=== PATIENT | female | born 1955 ===

== ENCOUNTER → 2017-01-10 | Outpatient (CLI) | payer OTHER ==
[2015-02-10 11:00] VITALS: BP 134/91
[~2017-01-10] MED LIST: ALEN70TA5 PO; DILT120C80 PO; METH10TA2 PO; METO25TA4 PO; SERT50TA PO
--- NOTE | 2017-01-10 14:10 | RAD ---
DATE: 01/10/2017 EXAM: MAMMO THOMPSON DARIN SUAREZ, BREAST LEFT HISTORY: Left breast lump COMPARISON: None available The breast parenchyma shows scattered fibroglandular densities. Breast parenchyma level B. FINDINGS: 2-D and 3-D tomosynthesis imaging was performed in CC and MLO projections. A marker was placed over the skin surface in the area of palpable concern in the upper outer quadrant of the left breast. No mass is seen in this region or other areas of either breast. Benign type calcifications are present. No suspicious microcalcifications are identified. Left breast ultrasound, 01/10/2017: A targeted ultrasound exam of the left breast was performed in the area of palpable concern in the upper outer quadrant. Normal heterogeneous fibroglandular shadows are present. No cystic or solid mass is seen. IMPRESSION: 1. No mammographic abnormality is detected. 2. The targeted ultrasound exam of the area of concern in the upper outer quadrant of the left breast shows no abnormality. Clinical surveillance is suggested. BI-RADS CATEGORY: 1 NEGATIVE RECOMMENDED FOLLOW-UP: 12M 12 MONTH FOLLOW-UP PQRS compliance statement: Patient information was entered into a reminder system with a target due date for the next mammogram. Mammography is a sensitive method for finding small breast cancers, but it does not detect them all and is not a substitute for careful clinical examination. A negative mammogram does not negate a clinically suspicious finding and should not result in delay in biopsying a clinically suspicious abnormality. "Our facility is accredited by the [employer] Mammography Program."
== END | disposition home or self-care (01) ==
LOC: KCIC MAMMO 12:49
PROVIDERS: ATTEND Internal Medicine
DX: N63 Unspecified lump in breast (principal); R92.1 Mammographic calcification found on diagnostic imaging of breast
CPT/HCPCS: 76641; G0204; G0279; 77062; 77066

== ENCOUNTER 2021-04-12 06:16 | Inpatient (IN) | payer MEDICARE, OTHER ==
[~2021-04-12] VITALS: Ht 160 cm; Wt 82.0 kg
[~2021-04-12 06:16] MED LIST changes: -ALEN70TA5 PO; +ALEN70TA71 PO; -DILT120C80 PO; +DILT120C99 PO; +METH-572 PO; -METH10TA2 PO
--- NOTE | 2021-04-12 06:53 | PHYS DOC ---
Past Medical History Past Medical History: Diabetes-Type II, Hypertension Additional Past Medical Histor: DM controlled with weight loss Past Surgical History: Hysterectomy Smoking Status: Current Every Day Smoker Alcohol Use: None Drug Use: None General Adult EDM: Chief Complaint: BLOOD SUGAR PROBLEM HPI: HPI: 65-year-old female with previous history of diabetes currently not on any diabetic regimen presents to the emergency department complaining of nausea, fatigue, dry heaving, and lack of appetite for the last 1 week. She checked her blood sugar this morning and it was in the 400s. She notes that in the past she lost quite a bit of weight and reversed her diabetes. She states that over the course of time she has gained the weight back, but is not on any medication to control blood sugar at this time. She reports no diarrhea or other gastrointestinal symptoms today. She denies frequency of urine or any further urine changes. She admits to a history of hypertension. She is compliant with all of her other medications. The patient denies vomiting, fever, chills, chest pain, shortness of breath, abdominal pain, cough, recent trauma, or any other complaints. Review of Systems: Review of Systems: Constitutional: Denies fever or chills. Eyes: Denies change in vision, pain. HENT: Denies congestion or sore throat. Respiratory: Denies cough or shortness of breath. Cardiovascular: Denies chest pain or edema. GI: Admits to dry heaving and nausea, lack of appetite. : Denies change in urination, dysuria. Musculoskeletal: Denies extremity pain, or trauma. Skin: Denies rash, skin change. Neurologic: Denies headache, focal weakness. Psychiatric: Denies depression or anxiety. All other systems reviewed as negative except for what was mentioned in the HPI. Heart Score: C/O Chest Pain: No Family History: Family History: Noncontributory Allergies: Allergies: Allergies Coded Allergies Type Severity Reaction Last Updated Verified No Known Drug Allergies 12/25/13 No Physical Exam: PE: Constitutional: No acute distress, non-toxic appearance. HENT: Atraumatic, bilateral external ears normal, nose normal. Eyes: PERRLA, EOMI, conjunctiva normal, no discharge. Neck: Normal range of motion, supple, no stridor. Cardiovascular: Heart rate regular rhythm. 2+ radial pulses Lungs & Thorax: No respiratory distress, symmetrical expansion. Abdomen: Soft, no tenderness Skin: Warm, dry. Extremities: No tenderness, no cyanosis, ROM intact, no edema. Neurologic: Alert and oriented X 3, normal motor function, normal sensory function, no focal deficits noted. Non ataxic gait. GCS 15. Psychologic: Affect normal, judgment normal, mood normal. Current Patient Data: Labs: Laboratory Tests Test 04/12/21 06:45 04/12/21 06:48 Glucose (Fingerstick) 594 mg/dL (70-99) White Blood Count 10.1 x10^3/uL (4.0-11.0) Red Blood Count 4.93 x10^6/uL (3.50-5.40) Hemoglobin 14.0 g/dL (12.0-15.5) Hematocrit 42.6 % (36.0-47.0) Mean Corpuscular Volume 86 fL (79-100) Mean Corpuscular Hemoglobin 28 pg (25-35) Mean Corpuscular Hemoglobin Concent 33 g/dL (31-37) Red Cell Distribution Width 13.1 % (11.5-14.5) Platelet Count 282 x10^3/uL (140-400) Neutrophils (%) (Auto) 77 % (31-73) Lymphocytes (%) (Auto) 11 % (24-48) Monocytes (%) (Auto) 8 % (0-9) Eosinophils (%) (Auto) 3 % (0-3) Basophils (%) (Auto) 1 % (0-3) Neutrophils # (Auto) 7.7 x10^3/uL (1.8-7.7) Lymphocytes # (Auto) 1.1 x10^3/uL (1.0-4.8) Monocytes # (Auto) 0.8 x10^3/uL (0.0-1.1) Eosinophils # (Auto) 0.3 x10^3/uL (0.0-0.7) Basophils # (Auto) 0.1 x10^3/uL (0.0-0.2) Sodium Level 123 mmol/L (136-145) Potassium Level 4.3 mmol/L (3.5-5.1) Chloride Level 91 mmol/L (98-107) Carbon Dioxide Level 22 mmol/L (21-32) Anion Gap 10 (6-14) Blood Urea Nitrogen 66 mg/dL (7-20) Creatinine 2.8 mg/dL (0.6-1.0) Estimated GFR (Cockcroft-Gault) 17.0 BUN/Creatinine Ratio 24 (6-20) Glucose Level 600 mg/dL (70-99) Calcium Level 10.3 mg/dL (8.5-10.1) Magnesium Level 2.2 mg/dL (1.8-2.4) Total Bilirubin 0.5 mg/dL (0.2-1.0) Aspartate Amino Transf (AST/SGOT) 23 U/L (15-37) Alanine Aminotransferase (ALT/SGPT) 37 U/L (14-59) Alkaline Phosphatase 106 U/L (46-116) Troponin I High Sensitivity 297 ng/L (4-50) ZJ-Bsj-Q-Type Natriuretic Peptide 830 pg/mL (0-124) Total Protein 7.4 g/dL (6.4-8.2) Albumin 3.4 g/dL (3.4-5.0) Albumin/Globulin Ratio 0.9 (1.0-1.7) Thyroid Stimulating Hormone (TSH) 6.277 uIU/mL (0.358-3.74) Vital Signs: Vital Signs Date Time Temp Pulse Resp B/P (MAP) Pulse Ox O2 Delivery O2 Flow Rate FiO2 04/12/21 06:39 97.8 60 13 157/89 (111) 99 Room Air 97.8 EKG: EKG: Time read: 0711 Questionable atrial flutter type pattern rate of 56, no ST-T wave ischemic changes. Impression: No STEMI, or ischemic change. Interpreted by me, Tripp Mcrae D.O. Radiology/Procedures: Radiology/Procedures: XR CHEST 1V 04/12/2021 6:53 AM INDICATION: Nausea COMPARISON: None available TECHNIQUE: Portable frontal view of the chest is provided. FINDINGS: The cardiomediastinal silhouette is within normal limits. Lungs are clear. There are no significant pleural effusions. There is no pulmonary vascular congestion. No pneumothorax. Levoconvex scoliosis of the thoracic spine. IMPRESSION: There is no acute cardiopulmonary process. Electronically signed by: Anuradha Maxwell MD (04/12/2021 7:01 AM) Course & Med Decision Making: Course & Med Decision Making Initial glucose of 594 fingerstick, insulin and fluids were ordered for symptomatic treatment. Lab abnormalities show DEMI, elevated troponin possibly from DEMI as patient is typical ACS symptoms, elevated TSH. I discussed the case with Dr. Isaac who accepted the patient for admission to the hospital. Patient was admitted in improved condition. Cardiology consult was placed repeat ekg shows irregular rhythm rate of 36, small appearing P waves were seen, patient remains stable. I discussed care with cardiology including bradycardic rhythm. Patient remained with stable BP. My Orders - TRIPP MCRAE DO Procedure Category Date Status Time Iv Normal Saline PHA 04/12/21 In Process 1000ml Bag (Iv Sodium 07:00 Cbc W Autodiff LAB 04/12/21 Complete 06:47 Comprehensive LAB 04/12/21 Complete Metabolic Panel 06:47 Ua, Cult If Indicated LAB 04/12/21 In Process 06:47 Portable Chest 1v RAD 04/12/21 Resulted 06:47 12 Lead Ekg EKG 04/12/21 Complete 06:47 Nt-Pro Bnp LAB 04/12/21 Complete 06:47 Troponin-I High LAB 04/12/21 Complete Sensitivity 06:47 Magnesium LAB 04/12/21 Complete 06:47 Thyroid Stim Hormone LAB 04/12/21 Complete (Tsh) 06:47 Insulin Regular Vial PHA 04/12/21 Complete (Humulin R Vial) 07:00 Glucose Poct X 1 [facility] 04/12/21 In Process 07:36 Troponin-I High LAB 04/12/21 Logged Sensitivity 10:00 [place] Order ADT 04/12/21 Transmitted 07:38 Code Status CODE 04/12/21 Transmitted 07:38 Vital Signs, Per Unit [facility] 04/12/21 In Process Protocol 07:38 Cardiac DIET 04/12/21 Transmitted Breakfast Ambulate With [facility] 04/12/21 In Process Assistance 07:38 Ondansetron Pf PHA 04/12/21 In Process (Zofran) 07:45 Iv Normal Saline PHA 04/12/21 In Process 1000ml Bag (Iv Sodium 07:45 Consult Physician By CONS 04/12/21 Transmitted Name 07:38 Vital Signs Q4h [facility] 04/12/21 In Process 07:38 Departure Departure Impression: Primary Impression: Acute hyperglycemia Disposition: 01 HOME / SELF CARE / HOMELESS Admitting Physician: NOLAN (Rigo) Condition: STABLE Referrals: KYLE XIONG MD (PCP) TRIPP MCRAE DO Apr 12, 2021 06:53
[2021-04-12] MEDS ORDERED: IV NORMAL SALINE 1000ML BAG 1,000 ML IV SCH (07:00)
[2021-04-12] MEDS ORDERED: INSULIN REGULAR 100 UNIT/ML 3ML VIAL. IV ONE (07:00)
--- NOTE | 2021-04-12 07:04 | RAD ---
XR CHEST 1V 04/12/2021 6:53 AM INDICATION: Nausea COMPARISON: None available TECHNIQUE: Portable frontal view of the chest is provided. FINDINGS: The cardiomediastinal silhouette is within normal limits. Lungs are clear. There are no significant pleural effusions. There is no pulmonary vascular congestion. No pneumothora x. Levoconvex scoliosis of the thoracic spine. IMPRESSION: There is no acute cardiopulmonary process. Electronically signed by: Anuradha Maxwell MD (04/12/2021 7:01 AM) GALLO
[2021-04-12 07:11] LABS: BASO # 0.1 x10^3/uL (0.0-0.2); BASO % 1 % (0-3); EOS # 0.3 x10^3/uL (0.0-0.7); EOS % 3 % (0-3); HEMATOCRIT 42.6 % (36.0-47.0); LYMPH # 1.1 x10^3/uL (1.0-4.8); LYMPH % 11 % (24-48); MEAN CORPUSCULAR HEMOGLOBIN 28 pg (25-35); MEAN CORPUSCULAR HGB CONC 33 g/dL (31-37); MEAN CORPUSCULAR VOLUME 86 fL (79-100); MONO # 0.8 x10^3/uL (0.0-1.1); MONO % 8 % (0-9); NEUT # 7.7 x10^3/uL (1.8-7.7); NEUT % 77 % (31-73); PLATELET COUNT 282 x10^3/uL (140-400); RED BLOOD COUNT 4.93 x10^6/uL (3.50-5.40); RED CELL DISTRIBUTION WIDTH 13.1 % (11.5-14.5); WHITE BLOOD COUNT 10.1 x10^3/uL (4.0-11.0)
--- NOTE | 2021-04-12 07:13 | EKG ---
[facility] [address] [place] [address] Test Date: 2021-04-12 Test Time: 07:05:05 Pat Name: MERCY GEORGE Department: Room: Gender: F Collection Manager: : [id number] Requested By: ALPESH CORNELL Order Number: [id number] Reading MD: Norman Gatica Measurements Intervals [place] Rate: 56 P: [place]: QRS: -5 QRSD: 110 T: 78 QT: 412 QTc: 400 Interpretive Statements PROBABLE SINUS BRADYCARDIA LEFTWARD AXIS NON SPECIFIC ST-T WAVE CHANGES Electronically Signed On 04-16-2021 9:59:43 DIRECTOR OF BILLING by Norman Gatica
[2021-04-12 07:27] LABS: ALBUMIN 3.4 g/dL (3.4-5.0); ALBUMIN/GLOBULIN RATIO 0.9 (1.0-1.7); CALCIUM 10.3 mg/dL (8.5-10.1); CREATININE 2.8 mg/dL (0.6-1.0); MAGNESIUM 2.2 mg/dL (1.8-2.4); POTASSIUM 4.3 mmol/L (3.5-5.1); TOTAL BILIRUBIN 0.5 mg/dL (0.2-1.0); TOTAL PROTEIN 7.4 g/dL (6.4-8.2)
[2021-04-12 07:31] LABS: BILIRUBIN,URINE NEGATIVE (NEG); CLARITY,URINE CLEAR; COLOR,URINE YELLOW; NITRITE,URINE NEGATIVE (NEG); PROTEIN,URINE 30 mg/dL (NEG-TRACE); UROBILINOGEN,URINE 0.2 mg/dL (0.2 mg/dL)
[2021-04-12] MEDS: IV NORMAL SALINE 1000ML BAG 1,000 ML IV SCH ×3 (07:45→17:45)
[2021-04-12] MEDS ORDERED: ONDANSETRON PF 4 MG/2 ML VIAL. IVP PRN ×2 (07:45→09:00)
[2021-04-12 08:06] LABS: BACTERIA,URINE FEW /HPF (0-FEW); RBC,URINE OCC /HPF (0-2); WBC,URINE OCC /HPF (0-4)
[2021-04-12] MEDS: HEPARIN for SUB-Q USE 5,000 UNIT/ML VIAL. SQ SCH ×3 (09:00→21:33)
[2021-04-12] MEDS ORDERED: ZOLPIDEM 5 MG TABLET. PO PRN (09:00)
[2021-04-12] MEDS ORDERED: ELECTROLYTE (NON-ICU) PROTOCOL. MC PRN (09:00)
[2021-04-12] MEDS: METOPROLOL TART IMMED RELEASE 25 MG TABLET. PO SCH ×2 (09:00→21:00)
[2021-04-12] MEDS: SERTRALINE 50 MG TABLET. PO SCH (09:00)
[2021-04-12] MEDS ORDERED: DEXTROSE 50% 25 GM / 50ML DISP.SYRIN. IV PRN (09:00)
[2021-04-12] MEDS ORDERED: CALCIUM CARBONATE 500 MG TAB.CHEW PO PRN (09:00)
[2021-04-12] MEDS ORDERED: ACETAMINOPHEN 325 MG TABLET. PO PRN (09:00)
[2021-04-12] MEDS ORDERED: INSULIN LISPRO 300 UNITS/3 ML VIAL. SQ ONE (09:30)
--- NOTE | 2021-04-12 09:58 | PDOC1 ---
History and Physical Date of Service: DOS: DATE: 04/12/21 TIME: 09:49 Chief Complaint: Problems: (1) Acute hyperglycemia Chief Complain: N/V, decreased PO intake History of Present Illness: HPI: Patient is a 65-year-old female present in the emergency room today due to 2 weeks of nausea vomiting dry heaving and decreased p.o. intake. She checked her blood sugar this morning and it was in the 400s. She notes that in the past she lost quite a bit of weight and this had controlled her diabetes she states that over the course of time she has gained the weight back, but is not on any medication to control blood sugar at this time. She reports no diarrhea or other gastrointestinal symptoms today. She denies frequency of urine or any further urine changes. She admits to a history of hypertension. She is compliant with all of her other medications. The patient denies vomiting, fever, chills, chest pain, shortness of breath, abdominal pain, cough, recent trauma, or any other complaints. Past Medical/Surgical History: PMH/PSH: Diabetes-Type II, Hypertension Allergies: Allergies: Coded Allergies: No Known Drug Allergies (Unverified , 12/25/13) Family History: Family History: Reports diabetes Social History: Social History: Current everyday smoker. Denies alcohol drug use Current Medications: Current Medications Current Medications Sodium Chloride 1,000 ml @ 1,000 mls/hr Q1H IV Last administered on 04/12/21at 07:04; Start 04/12/21 at 07:00; Stop 04/12/21 at 07:59; Status DC Insulin Human Regular (HumuLIN R VIAL) 8 unit 1X ONCE IV Last administered on 04/12/21at 07:06; Start 04/12/21 at 07:00; Stop 04/12/21 at 07:01; Status DC Ondansetron HCl (Zofran) 4 mg PRN Q8HRS PRN IVP NAUSEA/VOMITING; Start 04/12/21 at 07:45; Stop 04/13/21 at 07:44 Sodium Chloride 1,000 ml @ 100 mls/hr Q10H IV ; Start 04/12/21 at 07:45; Stop 04/13/21 at 07:44 Insulin Human Lispro (HumaLOG) 15 units ONCE ONCE SQ ; Start 04/12/21 at 09:30; Stop 04/12/21 at 09:31; Status DC Insulin Glargine (Lantus Syringe) 10 unit QHS SQ ; Start 04/12/21 at 21:00 Metoprolol Tartrate (Lopressor) 12.5 mg BID PO ; Start 04/12/21 at 09:00 Sertraline HCl (Zoloft) 50 mg DAILY PO ; Start 04/12/21 at 09:00 Ondansetron HCl (Zofran) 4 mg PRN Q6HRS PRN IVP NAUSEA/VOMITING; Start 04/12/21 at 09:00 Calcium Carbonate/ Glycine (Tums) 500 mg PRN Q3HRS PRN PO UPSET STOMACH; Start 04/12/21 at 09:00 Zolpidem Tartrate (Ambien) 5 mg PRN QHS PRN PO INSOMNIA, MAY REPEAT IN 1HR; Start 04/12/21 at 09:00 Info (Non-Icu Electrolyte Protocol) 1 ea PRN DAILY PRN MC SEE COMMENTS; Start 04/12/21 at 09:00 Acetaminophen (Tylenol) 650 mg PRN Q6HRS PRN PO Headaches, Temp > 101.5F; Start 04/12/21 at 09:00 Heparin Sodium (Porcine) (Heparin Sodium) 5,000 unit Q8HRS SQ ; Start 04/12/21 at 09:00 Insulin Human Lispro (HumaLOG) 0-9 UNITS TIDWMEALS SQ ; Start 04/12/21 at 12:00 Dextrose (Dextrose 50%-Water Syringe) 12.5 gm PRN Q15MIN PRN IV SEE COMMENTS; Start 04/12/21 at 09:00 Active Scripts Active Reported Metoprolol Tartrate 25 Mg Tablet 0.5 Tab PO BID Alendronate Sodium 70 Mg Tablet 1 Tab PO WEEKLY Methadone Hcl 10 Mg Tablet 10 Mg PO BID Zoloft (Sertraline Hcl) 50 Mg Tablet 1 Tab PO DAILY ROS: Review of Systems Review of System Unless noted in HPI 14 point review of systems was negative Physical Exam: Vital Signs: Vital Signs Date Time Temp Pulse Resp B/P (MAP) Pulse Ox O2 Delivery O2 Flow Rate FiO2 04/12/21 08:26 42 18 142/73 (96) 98 Room Air 04/12/21 06:39 97.8 97.8 Physcial Exam: GEN: No apparent distress. Alert and oriented. Obese HEENT: Normal cephalic, atraumatic, external auditory canals are patent EYES: Extraocular muscles are intact, pupil are equally round and reactive to light and accommodation MUSCULOSKELETAL: Well developed , well nourished, good range of motion ENDOCRINE: No thyromegaly was palpated LYMPHATICS: No cervical chain or axillary nodes were noted HEMATOPOIETIC: No bruising NECK: Supple, no JVD, no thyromegaly was noted LUNGS: Clear to auscultation in all lung huerta without rhonchi or wheezing HEART: RRR, S1, S2 present. Peripheral pulses intact, no obvious murmurs noted ABDOMEN: Soft, nontender. Positive bowel sounds, no organomegaly, normal bowel sounds EXTREMITIES: Without clubbing, cyanosis, or edema. Pedal pulses intact. NEUROLOGIC: Normal speech and tone. A&O x 3, moves all extremities, no obvious focal deficits PSYCHIATRIC: Normal affect, normal mood. Stable SKIN: No ulcerations or rashes, good skin turgor, no jaundice VASCULAR: Good capillary refill, neurovascular bundle appears to be intact Labs: Labs: Laboratory Tests Test 04/12/21 06:45 04/12/21 06:48 04/12/21 07:20 04/12/21 08:06 Glucose (Fingerstick) 594 mg/dL (70-99) 410 mg/dL (70-99) White Blood Count 10.1 x10^3/uL (4.0-11.0) Red Blood Count 4.93 x10^6/uL (3.50-5.40) Hemoglobin 14.0 g/dL (12.0-15.5) Hematocrit 42.6 % (36.0-47.0) Mean Corpuscular Volume 86 fL (79-100) Mean Corpuscular Hemoglobin 28 pg (25-35) Mean Corpuscular Hemoglobin Concent 33 g/dL (31-37) Red Cell Distribution Width 13.1 % (11.5-14.5) Platelet Count 282 x10^3/uL (140-400) Neutrophils (%) (Auto) 77 % (31-73) Lymphocytes (%) (Auto) 11 % (24-48) Monocytes (%) (Auto) 8 % (0-9) Eosinophils (%) (Auto) 3 % (0-3) Basophils (%) (Auto) 1 % (0-3) Neutrophils # (Auto) 7.7 x10^3/uL (1.8-7.7) Lymphocytes # (Auto) 1.1 x10^3/uL (1.0-4.8) Monocytes # (Auto) 0.8 x10^3/uL (0.0-1.1) Eosinophils # (Auto) 0.3 x10^3/uL (0.0-0.7) Basophils # (Auto) 0.1 x10^3/uL (0.0-0.2) Sodium Level 123 mmol/L (136-145) Potassium Level 4.3 mmol/L (3.5-5.1) Chloride Level 91 mmol/L (98-107) Carbon Dioxide Level 22 mmol/L (21-32) Anion Gap 10 (6-14) Blood Urea Nitrogen 66 mg/dL (7-20) Creatinine 2.8 mg/dL (0.6-1.0) Estimated GFR (Cockcroft-Gault) 17.0 BUN/Creatinine Ratio 24 (6-20) Glucose Level 600 mg/dL (70-99) Calcium Level 10.3 mg/dL (8.5-10.1) Magnesium Level 2.2 mg/dL (1.8-2.4) Total Bilirubin 0.5 mg/dL (0.2-1.0) Aspartate Amino Transf (AST/SGOT) 23 U/L (15-37) Alanine Aminotransferase (ALT/SGPT) 37 U/L (14-59) Alkaline Phosphatase 106 U/L (46-116) Troponin I High Sensitivity 297 ng/L (4-50) IR-Iuy-L-Type Natriuretic Peptide 830 pg/mL (0-124) Total Protein 7.4 g/dL (6.4-8.2) Albumin 3.4 g/dL (3.4-5.0) Albumin/Globulin Ratio 0.9 (1.0-1.7) Thyroid Stimulating Hormone (TSH) 6.277 uIU/mL (0.358-3.74) Urine Collection Type Unknown Urine Color Yellow Urine Clarity Clear Urine pH 6.0 (<5.0-8.0) Urine Specific [place] 1.020 (1.000-1.030) Urine Protein 30 mg/dL (NEG-TRACE) Urine Glucose (UA) >=1000 mg/dL (NEG) Urine Ketones (Stick) Negative mg/dL (NEG) Urine Blood Negative (NEG) Urine Nitrite Negative (NEG) Urine Bilirubin Negative (NEG) Urine Urobilinogen Dipstick 0.2 mg/dL (0.2 mg/dL) Urine Leukocyte Esterase Negative (NEG) Urine RBC Occ /HPF (0-2) Urine WBC Occ /HPF (0-4) Urine Squamous Epithelial Cells Few /LPF Urine Bacteria Few /HPF (0-FEW) Test 04/12/21 08:10 SARS-CoV-2 Antigen (Rapid) Negative (NEGATIVE) Laboratory Tests Test 04/12/21 06:45 04/12/21 06:48 04/12/21 07:20 04/12/21 08:06 Glucose (Fingerstick) 594 mg/dL (70-99) 410 mg/dL (70-99) White Blood Count 10.1 x10^3/uL (4.0-11.0) Red Blood Count 4.93 x10^6/uL (3.50-5.40) Hemoglobin 14.0 g/dL (12.0-15.5) Hematocrit 42.6 % (36.0-47.0) Mean Corpuscular Volume 86 fL (79-100) Mean Corpuscular Hemoglobin 28 pg (25-35) Mean Corpuscular Hemoglobin Concent 33 g/dL (31-37) Red Cell Distribution Width 13.1 % (11.5-14.5) Platelet Count 282 x10^3/uL (140-400) Neutrophils (%) (Auto) 77 % (31-73) Lymphocytes (%) (Auto) 11 % (24-48) Monocytes (%) (Auto) 8 % (0-9) Eosinophils (%) (Auto) 3 % (0-3) Basophils (%) (Auto) 1 % (0-3) Neutrophils # (Auto) 7.7 x10^3/uL (1.8-7.7) Lymphocytes # (Auto) 1.1 x10^3/uL (1.0-4.8) Monocytes # (Auto) 0.8 x10^3/uL (0.0-1.1) Eosinophils # (Auto) 0.3 x10^3/uL (0.0-0.7) Basophils # (Auto) 0.1 x10^3/uL (0.0-0.2) Sodium Level 123 mmol/L (136-145) Potassium Level 4.3 mmol/L (3.5-5.1) Chloride Level 91 mmol/L (98-107) Carbon Dioxide Level 22 mmol/L (21-32) Anion Gap 10 (6-14) Blood Urea Nitrogen 66 mg/dL (7-20) Creatinine 2.8 mg/dL (0.6-1.0) Estimated GFR (Cockcroft-Gault) 17.0 BUN/Creatinine Ratio 24 (6-20) Glucose Level 600 mg/dL (70-99) Calcium Level 10.3 mg/dL (8.5-10.1) Magnesium Level 2.2 mg/dL (1.8-2.4) Total Bilirubin 0.5 mg/dL (0.2-1.0) Aspartate Amino Transf (AST/SGOT) 23 U/L (15-37) Alanine Aminotransferase (ALT/SGPT) 37 U/L (14-59) Alkaline Phosphatase 106 U/L (46-116) Troponin I High Sensitivity 297 ng/L (4-50) JV-Dlg-J-Type Natriuretic Peptide 830 pg/mL (0-124) Total Protein 7.4 g/dL (6.4-8.2) Albumin 3.4 g/dL (3.4-5.0) Albumin/Globulin Ratio 0.9 (1.0-1.7) Thyroid Stimulating Hormone (TSH) 6.277 uIU/mL (0.358-3.74) Urine Collection Type Unknown Urine Color Yellow Urine Clarity Clear Urine pH 6.0 (<5.0-8.0) Urine Specific [place] 1.020 (1.000-1.030) Urine Protein 30 mg/dL (NEG-TRACE) Urine Glucose (UA) >=1000 mg/dL (NEG) Urine Ketones (Stick) Negative mg/dL (NEG) Urine Blood Negative (NEG) Urine Nitrite Negative (NEG) Urine Bilirubin Negative (NEG) Urine Urobilinogen Dipstick 0.2 mg/dL (0.2 mg/dL) Urine Leukocyte Esterase Negative (NEG) Urine RBC Occ /HPF (0-2) Urine WBC Occ /HPF (0-4) Urine Squamous Epithelial Cells Few /LPF Urine Bacteria Few /HPF (0-FEW) Test 04/12/21 08:10 SARS-CoV-2 Antigen (Rapid) Negative (NEGATIVE) Assessment/Plan Assessment/Plan Hyperglycemia secondary to uncontrolled type 2 diabetes not on home insulin, hypertension tobacco abuse, DEMI unknown baseline, troponinemia, hypothyroid -Presenting with 3 to 4-day history nausea vomiting decreased p.o. intake -Presented emergency room found to have glucose 600. Received 8 units of insulin next glucose check around 415 -Every 4 hours glucose checks -Give 10 units of insulin now. Start Lantus. Sliding scale. Will likely need premeal as well. -Patient also with elevated troponins. BNP consulting cardiology -Several electrolyte abnormalities. Elevated creatinine. Renal consulted -DVT prophylaxis -Home meds resumed as indicated Justifications for Admission Other Justification JO-ANN MCCLAIN MD Apr 12, 2021 09:58
[2021-04-12 10:50] VITALS: BP 164/92
[2021-04-12] MEDS ORDERED: PROP80CA3 PO (10:54)
[2021-04-12] MEDS ORDERED: TRAZ-118 PO (10:54)
[2021-04-12] MEDS ORDERED: [UNRECOGNIZED DRUG - CODE] PO (10:54)
[2021-04-12] MEDS ORDERED: CALC0.25 PO (10:54)
[2021-04-12] MEDS ORDERED: LEVO112T49 PO (10:54)
[2021-04-12] MEDS ORDERED: BUSP10TA PO (10:54)
[2021-04-12] MEDS ORDERED: OLAN5TAB67 PO (10:54)
[2021-04-12] MEDS ORDERED: LISI1TAB37 PO (10:54)
[2021-04-12] MEDS: busPIRone 10 MG TABLET. PO SCH ×2 (11:56→21:27)
[2021-04-12] MEDS: OLANZapine 5 MG TABLET PO SCH (11:57)
[2021-04-12] MEDS: CALCITRIOL 0.25 MCG CAPSULE. PO SCH (11:57)
[2021-04-12] MEDS ORDERED: PROPRANOLOL ER 80 MG CAP.ER.24H. PO SCH (12:00)
[2021-04-12] MEDS: INSULIN LISPRO 300 UNITS/3 ML VIAL. SQ SCH ×3 (12:00→18:04)
--- NOTE | 2021-04-12 12:02 | PDOC2 ---
CONSULT Date of Consult Date of Consult DATE: 04/12/21 TIME: 11:50 Reason for Consult Reason for Consult: DEMI Identification/Chief Complaint Chief Complaint None at present Source Source: Chart review, Patient History of Present Illness Reason for Visit: Patient is a 65-year-old female present in the emergency room today due to 2 w eeks of nausea vomiting dry heaving and decreased p.o. intake. She checked her blood sugar and it was in the 400s. She notes that in the past she lost quite a bit of weight and this had controlled her diabetes she states that over the course of time she has gained the weight back, but is not on any medications . Denies diarrhea , no abdominal pain . Denies F/C . No CP or SOB . Denies Urinary complaints, No UTI's States she knows she has Dx of Kidney disease, never referred to Nephrology - follows with PCP Dr. Jewell Salas, last appt earlier this year . Takes Advil 2 pills/day for many years Past Medical History Past Medical History Diabetes-Type II, Hypertension Family History Family History diabetes Social History Social History Current everyday smoker. Denies alcohol drug use Current Problem List Problem List Problems Medical Problems: (1) Acute hyperglycemia Status: Acute Current Medications Current Medications Current Medications Sodium Chloride 1,000 ml @ 1,000 mls/hr Q1H IV Last administered on 04/12/21at 07:04; Start 04/12/21 at 07:00; Stop 04/12/21 at 07:59; Status DC Insulin Human Regular (HumuLIN R VIAL) 8 unit 1X ONCE IV Last administered on 04/12/21at 07:06; Start 04/12/21 at 07:00; Stop 04/12/21 at 07:01; Status DC Ondansetron HCl (Zofran) 4 mg PRN Q8HRS PRN IVP NAUSEA/VOMITING; Start 04/12/21 at 07:45; Stop 04/13/21 at 07:44 Sodium Chloride 1,000 ml @ 100 mls/hr Q10H IV ; Start 04/12/21 at 07:45; Stop 04/13/21 at 07:44 Insulin Human Lispro (HumaLOG) 15 units ONCE ONCE SQ ; Start 04/12/21 at 09:30; Stop 04/12/21 at 09:31; Status DC Insulin Glargine (Lantus Syringe) 10 unit QHS SQ ; Start 04/12/21 at 21:00 Metoprolol Tartrate (Lopressor) 12.5 mg BID PO ; Start 04/12/21 at 09:00 Sertraline HCl (Zoloft) 50 mg DAILY PO ; Start 04/12/21 at 09:00 Ondansetron HCl (Zofran) 4 mg PRN Q6HRS PRN IVP NAUSEA/VOMITING; Start 04/12/21 at 09:00 Calcium Carbonate/ Glycine (Tums) 500 mg PRN Q3HRS PRN PO UPSET STOMACH; Start 04/12/21 at 09:00 Zolpidem Tartrate (Ambien) 5 mg PRN QHS PRN PO INSOMNIA, MAY REPEAT IN 1HR; Start 04/12/21 at 09:00 Info (Non-Icu Electrolyte Protocol) 1 ea PRN DAILY PRN MC SEE COMMENTS; Start 04/12/21 at 09:00 Acetaminophen (Tylenol) 650 mg PRN Q6HRS PRN PO Headaches, Temp > 101.5F; Start 04/12/21 at 09:00 Heparin Sodium (Porcine) (Heparin Sodium) 5,000 unit Q8HRS SQ ; Start 04/12/21 at 09:00 Insulin Human Lispro (HumaLOG) 0-9 UNITS TIDWMEALS SQ ; Start 04/12/21 at 12:00 Dextrose (Dextrose 50%-Water Syringe) 12.5 gm PRN Q15MIN PRN IV SEE COMMENTS; Start 04/12/21 at 09:00 Buspirone HCl (Buspar) 10 mg BID PO ; Start 04/12/21 at 12:00 Calcitriol (Rocaltrol) 0.25 mcg DAILY PO ; Start 04/12/21 at 12:00 Levothyroxine Sodium (Synthroid) 112 mcg DAILY06 PO ; Start 04/13/21 at 06:00 Olanzapine (ZyPREXA) 5 mg DAILY PO ; Start 04/12/21 at 12:00 Propranolol HCl (Inderal La) 80 mg DAILY PO ; Start 04/12/21 at 12:00 Trazodone HCl (Desyrel) 50 mg QHS PO ; Start 04/12/21 at 21:00 Diltiazem HCl (Cardizem 24hr Cd) 120 mg BID PO ; Start 04/12/21 at 12:00 Active Scripts Active Reported Olanzapine 5 Mg Tablet 5 Mg PO DAILY Trazodone Hcl 50 Mg Tablet 1 Tab PO QHS Buspirone Hcl 10 Mg Tablet 1 Tab PO BID Calcitriol 0.25 Mcg Capsule 1 Cap PO DAILY Propranolol Hcl 80 Mg Cap.sa.24h 1 Cap PO DAILY Levothyroxine Sodium 112 Mcg Tablet 1 Tab PO DAILY Lisinopril-Hctz 20-12.5 Mg Tab (Lisinopril/Hydrochlorothiazide) 1 Each Tablet 1 Tab PO DAILY Taztia Xt (Diltiazem Hcl) 120 Mg Capsule.er 1 Cap PO BID 30 Days Alendronate Sodium 70 Mg Tablet 1 Tab PO WEEKLY Methadone Hcl 10 Mg Tablet 10 Mg PO BID Zoloft (Sertraline Hcl) 50 Mg Tablet 1 Tab PO DAILY Allergies Allergies: Coded Allergies: No Known Drug Allergies (Unverified , 12/25/13) ROS Review of System As per HPI, rest of the ROS is negative Physical Exam Physical Exam GEN: No apparent distress HEENT: Normal cephalic, OM dry, anicteric NECK: Supple LUNGS: Clear to auscultation , non labored HEART: RRR, S1, S2 present. ABDOMEN: Soft, nontender. Positive bowel sound EXTREMITIES: Without clubbing, cyanosis, or edema. NEUROLOGIC: Normal speech and tone. A&O x 3, moves all extremities, no obvious focal deficits PSYCHIATRIC: Normal affect, normal mood. Stable SKIN: No ulcerations or rashes, good skin turgor, no jaundice No Lay, No CVA or SP tenderness Vital Signs Vital Signs Date Time Temp Pulse Resp B/P (MAP) Pulse Ox O2 Delivery O2 Flow Rate FiO2 04/12/21 10:50 98.0 64 16 164/92 (116) 97 Room Air 98.0 Assessment & Plan DEMI on CKD - Etiology Vasomotor- Vomiting/HyperGlycemia . E-lytes stable, Normal Bicarb. Supportive care, maintain Hydration, Avoid Nephrotoxins. Strict I/O CKD 3 B baseline Cr 1,6-1.8 in 2014, No interval labs available .Uses NSAId's HypoNatremia- Normal Na (135) after correcting for HyperGlycemia Hyperglycemia secondary to uncontrolled type 2 diabetes - primary managing DM UNcontrolled, not taking any meds at Home HTN antihypertensives Labs Labs Laboratory Tests Test 04/12/21 06:45 04/12/21 06:48 04/12/21 07:20 04/12/21 08:06 Glucose (Fingerstick) 594 mg/dL (70-99) 410 mg/dL (70-99) White Blood Count 10.1 x10^3/uL (4.0-11.0) Red Blood Count 4.93 x10^6/uL (3.50-5.40) Hemoglobin 14.0 g/dL (12.0-15.5) Hematocrit 42.6 % (36.0-47.0) Mean Corpuscular Volume 86 fL (79-100) Mean Corpuscular Hemoglobin 28 pg (25-35) Mean Corpuscular Hemoglobin Concent 33 g/dL (31-37) Red Cell Distribution Width 13.1 % (11.5-14.5) Platelet Count 282 x10^3/uL (140-400) Neutrophils (%) (Auto) 77 % (31-73) Lymphocytes (%) (Auto) 11 % (24-48) Monocytes (%) (Auto) 8 % (0-9) Eosinophils (%) (Auto) 3 % (0-3) Basophils (%) (Auto) 1 % (0-3) Neutrophils # (Auto) 7.7 x10^3/uL (1.8-7.7) Lymphocytes # (Auto) 1.1 x10^3/uL (1.0-4.8) Monocytes # (Auto) 0.8 x10^3/uL (0.0-1.1) Eosinophils # (Auto) 0.3 x10^3/uL (0.0-0.7) Basophils # (Auto) 0.1 x10^3/uL (0.0-0.2) Sodium Level 123 mmol/L (136-145) Potassium Level 4.3 mmol/L (3.5-5.1) Chloride Level 91 mmol/L (98-107) Carbon Dioxide Level 22 mmol/L (21-32) Anion Gap 10 (6-14) Blood Urea Nitrogen 66 mg/dL (7-20) Creatinine 2.8 mg/dL (0.6-1.0) Estimated GFR (Cockcroft-Gault) 17.0 BUN/Creatinine Ratio 24 (6-20) Glucose Level 600 mg/dL (70-99) Calcium Level 10.3 mg/dL (8.5-10.1) Magnesium Level 2.2 mg/dL (1.8-2.4) Total Bilirubin 0.5 mg/dL (0.2-1.0) Aspartate Amino Transf (AST/SGOT) 23 U/L (15-37) Alanine Aminotransferase (ALT/SGPT) 37 U/L (14-59) Alkaline Phosphatase 106 U/L (46-116) Troponin I High Sensitivity 297 ng/L (4-50) UK-Jss-A-Type Natriuretic Peptide 830 pg/mL (0-124) Total Protein 7.4 g/dL (6.4-8.2) Albumin 3.4 g/dL (3.4-5.0) Albumin/Globulin Ratio 0.9 (1.0-1.7) Thyroid Stimulating Hormone (TSH) 6.277 uIU/mL (0.358-3.74) Urine Collection Type Unknown Urine Color Yellow Urine Clarity Clear Urine pH 6.0 (<5.0-8.0) Urine Specific [place] 1.020 (1.000-1.030) Urine Protein 30 mg/dL (NEG-TRACE) Urine Glucose (UA) >=1000 mg/dL (NEG) Urine Ketones (Stick) Negative mg/dL (NEG) Urine Blood Negative (NEG) Urine Nitrite Negative (NEG) Urine Bilirubin Negative (NEG) Urine Urobilinogen Dipstick 0.2 mg/dL (0.2 mg/dL) Urine Leukocyte Esterase Negative (NEG) Urine RBC Occ /HPF (0-2) Urine WBC Occ /HPF (0-4) Urine Squamous Epithelial Cells Few /LPF Urine Bacteria Few /HPF (0-FEW) Test 04/12/21 08:10 04/12/21 11:14 04/12/21 11:31 SARS-CoV-2 Antigen (Rapid) Negative (NEGATIVE) Troponin I High Sensitivity 259 ng/L (4-50) Glucose (Fingerstick) 404 mg/dL (70-99) Laboratory Tests Test 04/12/21 06:45 04/12/21 06:48 04/12/21 07:20 04/12/21 08:06 Glucose (Fingerstick) 594 mg/dL (70-99) 410 mg/dL (70-99) White Blood Count 10.1 x10^3/uL (4.0-11.0) Red Blood Count 4.93 x10^6/uL (3.50-5.40) Hemoglobin 14.0 g/dL (12.0-15.5) Hematocrit 42.6 % (36.0-47.0) Mean Corpuscular Volume 86 fL (79-100) Mean Corpuscular Hemoglobin 28 pg (25-35) Mean Corpuscular Hemoglobin Concent 33 g/dL (31-37) Red Cell Distribution Width 13.1 % (11.5-14.5) Platelet Count 282 x10^3/uL (140-400) Neutrophils (%) (Auto) 77 % (31-73) Lymphocytes (%) (Auto) 11 % (24-48) Monocytes (%) (Auto) 8 % (0-9) Eosinophils (%) (Auto) 3 % (0-3) Basophils (%) (Auto) 1 % (0-3) Neutrophils # (Auto) 7.7 x10^3/uL (1.8-7.7) Lymphocytes # (Auto) 1.1 x10^3/uL (1.0-4.8) Monocytes # (Auto) 0.8 x10^3/uL (0.0-1.1) Eosinophils # (Auto) 0.3 x10^3/uL (0.0-0.7) Basophils # (Auto) 0.1 x10^3/uL (0.0-0.2) Sodium Level 123 mmol/L (136-145) Potassium Level 4.3 mmol/L (3.5-5.1) Chloride Level 91 mmol/L (98-107) Carbon Dioxide Level 22 mmol/L (21-32) Anion Gap 10 (6-14) Blood Urea Nitrogen 66 mg/dL (7-20) Creatinine 2.8 mg/dL (0.6-1.0) Estimated GFR (Cockcroft-Gault) 17.0 BUN/Creatinine Ratio 24 (6-20) Glucose Level 600 mg/dL (70-99) Calcium Level 10.3 mg/dL (8.5-10.1) Magnesium Level 2.2 mg/dL (1.8-2.4) Total Bilirubin 0.5 mg/dL (0.2-1.0) Aspartate Amino Transf (AST/SGOT) 23 U/L (15-37) Alanine Aminotransferase (ALT/SGPT) 37 U/L (14-59) Alkaline Phosphatase 106 U/L (46-116) Troponin I High Sensitivity 297 ng/L (4-50) SS-Zda-T-Type Natriuretic Peptide 830 pg/mL (0-124) Total Protein 7.4 g/dL (6.4-8.2) Albumin 3.4 g/dL (3.4-5.0) Albumin/Globulin Ratio 0.9 (1.0-1.7) Thyroid Stimulating Hormone (TSH) 6.277 uIU/mL (0.358-3.74) Urine Collection Type Unknown Urine Color Yellow Urine Clarity Clear Urine pH 6.0 (<5.0-8.0) Urine Specific [place] 1.020 (1.000-1.030) Urine Protein 30 mg/dL (NEG-TRACE) Urine Glucose (UA) >=1000 mg/dL (NEG) Urine Ketones (Stick) Negative mg/dL (NEG) Urine Blood Negative (NEG) Urine Nitrite Negative (NEG) Urine Bilirubin Negative (NEG) Urine Urobilinogen Dipstick 0.2 mg/dL (0.2 mg/dL) Urine Leukocyte Esterase Negative (NEG) Urine RBC Occ /HPF (0-2) Urine WBC Occ /HPF (0-4) Urine Squamous Epithelial Cells Few /LPF Urine Bacteria Few /HPF (0-FEW) Test 04/12/21 08:10 04/12/21 11:14 04/12/21 11:31 SARS-CoV-2 Antigen (Rapid) Negative (NEGATIVE) Troponin I High Sensitivity 259 ng/L (4-50) Glucose (Fingerstick) 404 mg/dL (70-99) Review All relevant outside records, renal labs, imaging studies, telemetry/EKG's were reviewed. Images Images 1V 04/12/2021 6:53 AM INDICATION: Nausea COMPARISON: None available TECHNIQUE: Portable frontal view of the chest is provided. FINDINGS: The cardiomediastinal silhouette is within normal limits. Lungs are clear. There are no significant pleural effusions. There is no pulmonary vascular congestion. No pneumothorax. Levoconvex scoliosis of the thoracic spine. IMPRESSION: There is no acute cardiopulmonary process. MAYELIN HOWE MD Apr 12, 2021 12:02
--- NOTE | 2021-04-12 12:07 | PDOC2 ---
JONATHAN CHAN FILM LIBRARIAN 04/12/21 1207: CARDIAC CONSULT DATE OF CONSULT Date of Consult DATE: 04/12/21 TIME: 11:55 REASON FOR CONSULT Reason for Consult: Elevated troponin REFERRING PHYSICIAN Referring Physician: Dr. Mcrae SOURCE Source: Chart review, Patient HISTORY OF PRESENT ILLNESS HISTORY OF PRESENT ILLNESS This is a 65 yo female who presented secondary to nausea, fatigue, decreased appetite, and hyperglycemia. e. She was previously on insulin for diabetes management, but lost weight and was able to get off her diabetic medications. Unfortunately, she gained back the weight and has not monitored her glucose level. Over the last week, has had decreased appetite, fatigue, and nausea, which prompted he to check her blood sugar. Blood sugar was noted in the 400 range at home. Troponin level was noted to be elevated upon initial labs, which prompted this consult. She denies any chest pain, palpitations, dizziness, diaphoresis, or SOA. No previous cardiac workup. PAST MEDICAL HISTORY Cardiovascular: HTN, Hyperlipidemia Endocrine: Diabetes PAST SURGICAL HISTORY Past Surgical History: Hysterectomy FAMILY HISTORY Family History: Diabetes, Hypertension SOCIAL HISTORY Smoke: Quit ALCOHOL: none Drugs: None Lives: with Family CURRENT MEDICATIONS CURRENT MEDICATIONS Current Medications Medications (Trade) Dose Ordered Sig/Ralph Route PRN Reason Start Time Stop Time Status Last Admin Dose Admin Sodium Chloride 1,000 ml @ 1,000 mls/hr Q1H IV 04/12/21 07:00 04/12/21 07:59 DC 04/12/21 07:04 Insulin Human Regular (HumuLIN R VIAL) 8 unit 1X ONCE IV 04/12/21 07:00 04/12/21 07:01 DC 04/12/21 07:06 ALLERGIES ALLERGIES: Coded Allergies: No Known Drug Allergies (Unverified , 12/25/13) ROS Review of System 14 point ROS conducted with pertinent positives noted above in HPI PHYSICAL EXAM General: Alert, Oriented X3, Cooperative, No acute distress HEENT: Atraumatic Lungs: Clear to auscultation Heart: Regular rate Abdomen: Soft, No tenderness, Other (obese) Extremities: No edema, Normal pulses Skin: No significant lesion Neuro: Normal speech, Sensation intact Psych/Mental Status: Mental status NL, Mood NL MUSCULOSKELETAL: No joint tenderness, Osteoarthritic changes both hands VITALS/I&O VITALS/I&O: Vital Signs Date Time Temp Pulse Resp B/P (MAP) Pulse Ox O2 Delivery O2 Flow Rate FiO2 04/12/21 10:50 98.0 64 16 164/92 (116) 97 Room Air 98.0 LABS Lab: Laboratory Tests Test 04/12/21 06:45 04/12/21 06:48 04/12/21 07:20 04/12/21 08:06 Glucose (Fingerstick) 594 mg/dL (70-99) *H 410 mg/dL (70-99) H White Blood Count 10.1 x10^3/uL (4.0-11.0) Red Blood Count 4.93 x10^6/uL (3.50-5.40) Hemoglobin 14.0 g/dL (12.0-15.5) Hematocrit 42.6 % (36.0-47.0) Mean Corpuscular Volume 86 fL (79-100) Mean Corpuscular Hemoglobin 28 pg (25-35) Mean Corpuscular Hemoglobin Concent 33 g/dL (31-37) Red Cell Distribution Width 13.1 % (11.5-14.5) Platelet Count 282 x10^3/uL (140-400) Neutrophils (%) (Auto) 77 % (31-73) H Lymphocytes (%) (Auto) 11 % (24-48) L Monocytes (%) (Auto) 8 % (0-9) Eosinophils (%) (Auto) 3 % (0-3) Basophils (%) (Auto) 1 % (0-3) Neutrophils # (Auto) 7.7 x10^3/uL (1.8-7.7) Lymphocytes # (Auto) 1.1 x10^3/uL (1.0-4.8) Monocytes # (Auto) 0.8 x10^3/uL (0.0-1.1) Eosinophils # (Auto) 0.3 x10^3/uL (0.0-0.7) Basophils # (Auto) 0.1 x10^3/uL (0.0-0.2) Sodium Level 123 mmol/L (136-145) L Potassium Level 4.3 mmol/L (3.5-5.1) Chloride Level 91 mmol/L (98-107) L Carbon Dioxide Level 22 mmol/L (21-32) Anion Gap 10 (6-14) Blood Urea Nitrogen 66 mg/dL (7-20) H Creatinine 2.8 mg/dL (0.6-1.0) H Estimated GFR (Cockcroft-Gault) 17.0 BUN/Creatinine Ratio 24 (6-20) H Glucose Level 600 mg/dL (70-99) *H Calcium Level 10.3 mg/dL (8.5-10.1) H Magnesium Level 2.2 mg/dL (1.8-2.4) Total Bilirubin 0.5 mg/dL (0.2-1.0) Aspartate Amino Transferase (AST) 23 U/L (15-37) Alanine Aminotransferase (ALT) 37 U/L (14-59) Alkaline Phosphatase 106 U/L (46-116) Troponin I High Sensitivity 297 ng/L (4-50) H YB-Tot-N-Type Natriuretic Peptide 830 pg/mL (0-124) H Total Protein 7.4 g/dL (6.4-8.2) Albumin 3.4 g/dL (3.4-5.0) Albumin/Globulin Ratio 0.9 (1.0-1.7) L Thyroid Stimulating Hormone (TSH) 6.277 uIU/mL (0.358-3.74) H Urine Collection Type Unknown Urine Color Yellow Urine Clarity Clear Urine pH 6.0 (<5.0-8.0) Urine Specific [place] 1.020 (1.000-1.030) Urine Protein 30 mg/dL (NEG-TRACE) Urine Glucose (UA) >=1000 mg/dL (NEG) Urine Ketones (Stick) Negative mg/dL (NEG) Urine Blood Negative (NEG) Urine Nitrite Negative (NEG) Urine Bilirubin Negative (NEG) Urine Urobilinogen Dipstick 0.2 mg/dL (0.2 mg/dL) Urine Leukocyte Esterase Negative (NEG) Urine RBC Occ /HPF (0-2) Urine WBC Occ /HPF (0-4) Urine Squamous Epithelial Cells Few /LPF Urine Bacteria Few /HPF (0-FEW) Test 04/12/21 08:10 04/12/21 11:14 04/12/21 11:31 SARS-CoV-2 Antigen (Rapid) Negative (NEGATIVE) Troponin I High Sensitivity 259 ng/L (4-50) H Glucose (Fingerstick) 404 mg/dL (70-99) H Laboratory Tests 04/12/21 06:48 Laboratory Tests 04/12/21 06:48 ASSESSMENT/PLAN ASSESSMENT/PLAN 1. Hyperglycemia, uncontrolled diabetes, II 2 . DEMI 3. Hyponatremia 4. Mild troponin elevation; peak 297. type II, demand ischemia. CP free 5. Accelerated hypertension 6. Hyperlipidemia 7. Sinus bradycardia; lowest 36. Presently 55. Initial EKG read as a-flutter, but appears SB with artifact 8. H/o migraine; on propranolol Recommendations Lipids, TSH ASA therapy Hold Cardizem and propranolol for now Avoid AV sudha blocking agents Monitor rhythm, rate Echocardiogram to assess LV systolic function Consider outpatient ischemic evaluation Outpatient event monitor. CINDY ARANDA MD 04/12/21 1535: CARDIAC CONSULT ASSESSMENT/PLAN ASSESSMENT/PLAN The patient was seen and interviewed as well as examined at the bedside. The chart was reviewed. The case was discussed. Agree with the plan of care. JONATHAN CHAN APRN Apr 12, 2021 12:07 CINDY ARANDA MD Apr 12, 2021 15:35
[2021-04-12 12:30] LABS: CHOLESTEROL 494 mg/dL (0-200); HDLC 37 mg/dL (40-60); TRIGLYCERIDES 586 mg/dL (0-150); VLDLC 117 mg/dL (0-40)
[2021-04-12 12:34] LABS: CHOLESTEROL/HDL RATIO 13.4
--- NOTE | 2021-04-12 13:28 | EKG ---
[facility] [address] [place] [address] Test Date: 2021-04-12 Test Time: 08:51:31 Pat Name: MERCY GEORGE Department: Room: [facility] Gender: F Impregnation Operator: : [id number] Requested By: JO-ANN MCCLAIN Order Number: [id number] Reading MD: Norman Gatica Measurements Intervals Dora Rate: 36 P: [place]: QRS: 173 QRSD: 106 T: 78 QT: 580 QTc: 453 Interpretive Statements SEVERE SINUS BRADYCARDIA PACS CONSIDER RIGHT VENTRICULAR HYPERTROPHY NON SPECIFIC ST-T WAVE CHANGES ABNORMAL ECG Electronically Signed On 04-16-2021 9:56:57 [employer]ACLE [employer] DEVELOPER by Norman Gatica
[2021-04-12 15:00] VITALS: BP 133/78
[2021-04-12 19:00] VITALS: BP 94/52
[2021-04-12] MEDS ORDERED: INSULIN GLARGINE SYRINGE. SQ SCH (21:00)
[2021-04-12] MEDS: traZODone 50 MG TABLET. PO SCH (21:27)
[2021-04-12 23:00] VITALS: BP 85/59
[2021-04-12 23:12] LABS: UR POTASSIUM 19.9 mmol/L (Not Estab.)
[2021-04-13] MEDS: IV NORMAL SALINE 1000ML BAG 1,000 ML IV SCH ×3 (00:09→11:51)
[2021-04-13 03:00] VITALS: BP 133/83
[2021-04-13] MEDS: HEPARIN for SUB-Q USE 5,000 UNIT/ML VIAL. SQ SCH ×3 (06:04→20:34)
[2021-04-13] MEDS: LEVOTHYROXINE 112 MCG TABLET PO SCH (06:05)
[2021-04-13 07:00] VITALS: BP 157/90
[2021-04-13 07:16] LABS: HEMOGLOBIN A1C >15.5 % (4.8-5.6)
[2021-04-13 08:05] LABS: CALCIUM 8.8 mg/dL (8.5-10.1); CREATININE 2.1 mg/dL (0.6-1.0); GFR 23.7; POTASSIUM 3.4 mmol/L (3.5-5.1)
--- NOTE | 2021-04-13 08:48 | CARD ---
MR#: [id number] Date of Study: 04/12/2021 Ordering Physician: JONATHAN CHAN, Referring Physician: JONATHAN CHAN, Meeta: Shaw Whitaker [facility] APPROVED REPORT EXAM: Two-dimensional and M-mode echocardiogram with Doppler and color Doppler. Other Information Quality : AverageHR: 37bpm Rhythm : Bradycardia INDICATION Elevated troponin RISK FACTORS Hypertension Diabetes 2D DIMENSIONS Left Atrium(2D)3.5 (1.6-4.0cm)IVSd1.3 (0.7-1.1cm) Aortic Root(2D)3.0 (2.0-3.7cm)LVDd4.3 (3.9-5.9cm) LVOT Diameter1.8 (1.8-2.4cm)PWd1.3 (0.7-1.1cm) LVDs2.9 (2.5-4.0cm)FS (%) 32.0 % SV51.1 mlLVEF(%)60.5 (>50%) Aortic Valve AoV Peak You.132.7cm/sAoV VTI29.2cm AO Peak GR.7.0mmHgLVOT Peak You.94.0cm/s AO Mean GR.5mmHgAVA (VMAX)1.80cm2 Mitral Valve MV E Hckhhcwd38.3cm/sMV E Peak Gr.6mmHg MV DECEL [id number] A Yayysedw839.4cm/s MV E Mean Gr.1mmHgE/A Ratio0.6 Pulmonary Valve PV Peak Rlgvbqil36.4cm/s Tricuspid Valve TR P. Rrgjagvc830lv/sTR Peak Gr.24mmHg Pulmonary Vein S1 Seitaycj30.4cm/sD2 Wbiyubyt36.2cm/s LEFT VENTRICLE The left ventricle is normal size. There is borderline to mild concentric left ventricular hypertroph y. The left ventricular systolic function is normal. The ejection fraction is 50-55%. There is normal LV segmental wall motion. Transmitral Doppler flow pattern is Grade I-abnormal relaxation pattern. N o left ventricle thrombus noted on this study. There is no ventricular septal defect visualized. Ther e is no left ventricular aneurysm. There is no mass noted in the left ventricle. RIGHT VENTRICLE The right ventricle is normal size. There is normal right ventricular wall thickness. The right ventr icular systolic function is normal. ATRIA The left atrium is mildly dilated. The right atrium size is normal. The interatrial septum is intact with no evidence for an atrial septal defect or patent foramen ovale as noted on 2-D or Doppler imagi ng. AORTIC VALVE The aortic valve is normal in structure and function. Doppler and Color Flow revealed no significant aortic regurgitation. There is no significant aortic valvular stenosis. There is no aortic valvular v egetation. MITRAL VALVE The mitral valve is normal in structure and function. There is no evidence of mitral valve prolapse. There is no mitral valve stenosis. Doppler and Color-flow revealed mild mitral regurgitation. TRICUSPID VALVE The tricuspid valve is normal in structure and function. Doppler and Color Flow revealed trace tricus pid regurgitation. There is no tricuspid valve prolapse or vegetation. There is no tricuspid valve st enosis. PULMONIC VALVE Doppler and Color Flow revealed no pulmonic valvular regurgitation. There is no pulmonic valvular massimo nosis. GREAT VESSELS The aortic root is normal in size. The ascending aorta is normal in size. The pulmonary artery is nor mal. The IVC is normal in size and collapses >50% with inspiration. PERICARDIAL EFFUSION There is no pleural effusion. There is no evidence of significant pericardial effusion. Critical Notification Critical Value: No <Conclusion> The left ventricular systolic function is normal. The ejection fraction is 50-55%. There is normal LV segmental wall motion. Transmitral Doppler flow pattern is Grade I-abnormal relaxation pattern. Mild mitral regurgitation. Trace tricuspid regurgitation. There is no evidence of significant pericardial effusion. Signed by : Dominick Mattson, Electronically Approved : 04/13/2021 08:47:30
[2021-04-13] MEDS: CALCITRIOL 0.25 MCG CAPSULE. PO SCH (09:29)
[2021-04-13] MEDS: OLANZapine 5 MG TABLET PO SCH (09:29)
[2021-04-13] MEDS: ASPIRIN ENTERIC COATED 81 MG TABLET.DR. PO SCH (09:29)
[2021-04-13] MEDS: busPIRone 10 MG TABLET. PO SCH ×2 (09:29→20:30)
[2021-04-13] MEDS ORDERED: POTASSIUM CHLORIDE 20 MEQ TABLET.ER. PO ONE (09:30)
[2021-04-13] MEDS: SERTRALINE 50 MG TABLET. PO SCH (09:30)
[2021-04-13] MEDS: INSULIN LISPRO 300 UNITS/3 ML VIAL. SQ SCH ×6 (09:36→17:56)
[2021-04-13] MEDS: INSULIN GLARGINE SYRINGE. SQ SCH ×2 (10:02→20:34)
--- NOTE | 2021-04-13 10:02 | PDOC ---
DATE OF SERVICE DATE: 04/13/21 TIME: 10:02 SUBJECTIVE ROS No complaints, states feeling better. No N/V. No SOB, reports good UOP OBJECTIVE Vital Signs Vital Signs Date Time Temp Pulse Resp B/P (MAP) Pulse Ox O2 Delivery O2 Flow Rate FiO2 04/13/21 07:00 98.4 69 18 157/90 (112) 97 Room Air 98.4 I & 0 Intake and Output 04/13/21 07:00 Intake Total 1350 ml Output Total 1200 ml Balance 150 ml Intake Oral 350 ml IV Total 1000 ml Output Urine Total 1200 ml PHYSICAL EXAM Physical Exam GEN: No apparent distress HEENT: Normal cephalic, OM dry, anicteric NECK: Supple LUNGS: Clear to auscultation , non labored HEART: RRR, S1, S2 present. ABDOMEN: Soft, nontender. Positive bowel sound EXTREMITIES: Without clubbing, cyanosis, or edema. NEUROLOGIC: Normal speech and tone. A&O x 3, moves all extremities, no obvious focal deficits PSYCHIATRIC: Normal affect, normal mood. Stable SKIN: No ulcerations or rashes, good skin turgor, no jaundice No Lay, No CVA or SP tenderness DIAGNOSIS/ASSESSMENT Assessment & Plan DEMI on CKD - Etiology Vasomotor- Vomiting/HyperGlycemia . Improving renal function .Normal Bicarb. Supportive care, maintain Hydration, Avoid Nephrotoxins. Strict I/O . CKD 3 B baseline Cr 1,6-1.8 in 2014, No interval labs available .Uses NSAId's HypoNatremia- Normal Na after correcting for HyperGlycemia HypoKlaemia- Replace as indicated Hyperglycemia secondary to uncontrolled type 2 diabetes - primary managing DM UNcontrolled, not taking any meds at Home HTN antihypertensives COMMENT/RELEVANT DATA Meds Current Medications Medications (Trade) Dose Ordered Sig/Ralph Start Time Stop Time Status Last Admin Dose Admin Acetaminophen (Tylenol) 650 mg PRN Q6HRS PRN 04/12/21 09:00 Aspirin (Ecotrin) 81 mg DAILYWBKFT 04/13/21 08:00 Buspirone HCl (Buspar) 10 mg BID 04/12/21 12:00 04/12/21 21:27 10 MG Calcitriol (Rocaltrol) 0.25 mcg DAILY 04/12/21 12:00 Calcium Carbonate/ Glycine (Tums) 500 mg PRN Q3HRS PRN 04/12/21 09:00 Dextrose (Dextrose 50%-Water Syringe) 12.5 gm PRN Q15MIN PRN 04/12/21 09:00 Diltiazem HCl (Cardizem 24hr Cd) 120 mg BID 04/12/21 12:00 Heparin Sodium (Porcine) (Heparin Sodium) 5,000 unit Q8HRS 04/12/21 09:00 04/13/21 06:04 5,000 UNIT Info (Non-Icu Electrolyte Protocol) 1 ea PRN DAILY PRN 04/12/21 09:00 Insulin Glargine (Lantus Syringe) 10 unit BID 04/13/21 09:00 Insulin Human Lispro (HumaLOG) 10 units TIDWMEALS 04/12/21 17:00 Insulin Human Regular (HumuLIN R VIAL) 8 unit 1X ONCE 04/12/21 07:00 04/12/21 07:01 DC 04/12/21 07:06 8 UNIT Levothyroxine Sodium (Synthroid) 112 mcg DAILY06 04/13/21 06:00 04/13/21 06:05 112 MCG Metoprolol Tartrate (Lopressor) 12.5 mg BID 04/12/21 09:00 Olanzapine (ZyPREXA) 5 mg DAILY 04/12/21 12:00 Ondansetron HCl (Zofran) 4 mg PRN Q6HRS PRN 04/12/21 09:00 Potassium Chloride (Klor-Con) 40 meq 1X ONCE 04/13/21 09:30 04/13/21 09:31 DC Propranolol HCl (Inderal La) 80 mg DAILY 04/12/21 12:00 Sertraline HCl (Zoloft) 50 mg DAILY 04/12/21 09:00 Sodium Chloride 1,000 ml @ 75 mls/hr [id number] 04/12/21 12:45 04/13/21 00:09 75 MLS/HR Trazodone HCl (Desyrel) 50 mg QHS 04/12/21 21:00 04/12/21 21:27 50 MG Zolpidem Tartrate (Ambien) 5 mg PRN QHS PRN 04/12/21 09:00 Lab Laboratory Tests Test 04/12/21 11:14 04/12/21 11:31 04/12/21 16:48 04/13/21 00:00 Troponin I High Sensitivity 259 ng/L (4-50) Glucose (Fingerstick) 404 mg/dL (70-99) 177 mg/dL (70-99) 248 mg/dL (70-99) Test 04/13/21 06:20 04/13/21 07:42 Sodium Level 133 mmol/L (136-145) Potassium Level 3.4 mmol/L (3.5-5.1) Chloride Level 101 mmol/L (98-107) Carbon Dioxide Level 20 mmol/L (21-32) Anion Gap 12 (6-14) Blood Urea Nitrogen 52 mg/dL (7-20) Creatinine 2.1 mg/dL (0.6-1.0) Estimated GFR (Cockcroft-Gault) 23.7 Glucose Level 314 mg/dL (70-99) Calcium Level 8.8 mg/dL (8.5-10.1) Glucose (Fingerstick) 317 mg/dL (70-99) Results All relevant outside records, renal labs, imaging studies, telemetry/EKG's were reviewed. Justicifation of Admission Dx: Justifications for Admission: Justification of Admission Dx: N/A MAYELIN HOWE MD Apr 13, 2021 10:02
[2021-04-13 11:00] VITALS: BP 127/88
--- NOTE | 2021-04-13 11:13 | PDOC ---
ABBE SYED PROCUREMENT OFFICER 04/13/21 1113: CARDIO Progress Notes Date and Time Date of Service 04/13/2021 Time of Evaluation 1050 Subjective Subjective: No Chest Pain, No shortness of breath, No Palpitations Vitals Vitals Vital Signs Date Time Temp Pulse Resp B/P (MAP) Pulse Ox O2 Delivery O2 Flow Rate FiO2 04/13/21 07:00 98.4 69 18 157/90 (112) 97 Room Air 98.4 Weight Weight [ ] Input and Output Intake and Output Intake and Output 04/13/21 07:00 Intake Total 1350 ml Output Total 1200 ml Balance 150 ml Intake Oral 350 ml IV Total 1000 ml Output Urine Total 1200 ml Laboratory Labs Laboratory Tests Test 04/12/21 11:14 04/12/21 11:31 04/12/21 16:48 04/13/21 00:00 Troponin I High Sensitivity 259 ng/L (4-50) Glucose (Fingerstick) 404 mg/dL (70-99) 177 mg/dL (70-99) 248 mg/dL (70-99) Test 04/13/21 06:20 04/13/21 07:42 Sodium Level 133 mmol/L (136-145) Potassium Level 3.4 mmol/L (3.5-5.1) Chloride Level 101 mmol/L (98-107) Carbon Dioxide Level 20 mmol/L (21-32) Anion Gap 12 (6-14) Blood Urea Nitrogen 52 mg/dL (7-20) Creatinine 2.1 mg/dL (0.6-1.0) Estimated GFR (Cockcroft-Gault) 23.7 Glucose Level 314 mg/dL (70-99) Calcium Level 8.8 mg/dL (8.5-10.1) Glucose (Fingerstick) 317 mg/dL (70-99) Physical Exam HEENT: Neck Supple W Full Motion Chest: Symmetric LUNGS: Clear to Auscultation Heart: S1S2, RRR (SR/SB) Abdomen: Soft N/T Extremities: No Edema, No Calf Tenderness Neurology: alert, oriented, follow commands Assessment Assessment 1. Uncontrolled DM2 2 . DEMI 3. Hyponatremia 4. Mild troponin elevation; peak 297. type II, demand ischemia. CP free. EF and WM nml 5. Accelerated hypertension: now controlled 6. Hyperlipidemia 7. Sinus bradycardia; lowest 36 with associated use of propranolol and cardizem 8. H/o migraine; on propranolol Recommendations DC metoprolol, propranolol and cardizem. Start on norvasc. High dose statin Avoid AV sudha blocking agents Monitor rhythm, rate Consider outpatient ischemic evaluation Consider Outpatient event monitor. Follow up with Dr. Aranda May 18 at 2:15 PM Justicifation of Admission Dx: Justifications for Admission: Justification of Admission Dx: Yes CINDY ARANDA MD 04/13/211939: CARDIO Progress Notes Plan Plan Pt. seen and examined. Agree with above PUBLIC RELATIONS PROFESSIONAL note. Supportive care. Thanks ABBE SYED APRN Apr 13, 2021 11:13 CINDY ARANDA MD Apr 13, 2021 19:40
--- NOTE | 2021-04-13 13:08 | NUR ---
SS following for discharge planning. SS reviewed pt chart and discussed with pt RN. Pt is from home with spouse and is currently on room air. COVID19 negative. Cardiology and Nephrology consulted. SS will continue to follow for discharge planning.
[2021-04-13 15:00] VITALS: BP 133/68
--- NOTE | 2021-04-13 15:55 | PDOC ---
[facility] PROGRESS NOTE Date of Service DOS: DATE: 04/13/21 TIME: 15:52 Chief Complaint Chief Complaint Hyperglycemia secondary to uncontrolled type 2 diabetes not on home insulin, hypertension tobacco abuse, DEMI unknown baseline, troponinemia, hypothyroid -Presenting with 3 to 4-day history nausea vomiting decreased p.o. intake -Presented emergency room found to have glucose 600. Received 8 units of insulin next glucose check around 415 -Every 4 hours glucose checks -Give 10 units of insulin now. Start Lantus. Sliding scale. Will likely need premeal as well. -Appreciate cardiology recommendationswe will DC metoprolol propranolol and Cardizem. Will start on amlodipine and high-dose statin. Patient okay for outpatient ischemic evaluation with Dr. Munroe on May 18 -Nephrology recommendations appreciatedwe will continue to trend creatinines and avoid NSAIDs -DVT prophylaxis -Home meds resumed as indicated History of Present Illness History of Present Illness 65-year-old female present in the emergency room today due to 2 weeks of nausea vomiting dry heaving and decreased p.o. intake. She checked her blood sugar this morning and it was in the 400s. She notes that in the past she lost quite a bit of weight and this had controlled her diabetes she states that over the course of time she has gained the weight back, but is not on any medication to control blood sugar at this time. She reports no diarrhea or other gastrointestinal symptoms today. She denies frequency of urine or any further urine changes. She admits to a history of hypertension. She is compliant with all of her other medications. The patient denies vomiting, fever, chills, chest pain, shortness of breath, abdominal pain, cough, recent trauma, or any other complaints. 04/13/2021 No acute events overnight. Patient symptoms have improved. Sugars have been in the 200s and 300s. I have increased her glargine to 10 units twice daily. Patient states that when she lost her weight she stopped taking her insulin. She will need to stay on insulin and possibly Metformin at time of discharge. Patient's chart, labs, images were reviewed and discussed with RN Vitals/I&O Vitals/I&O: Vital Signs Date Time Temp Pulse Resp B/P (MAP) Pulse Ox O2 Delivery O2 Flow Rate FiO2 04/13/21 11:56 62 130/87 04/13/21 11:00 97.9 18 94 Room Air 97.9 I & O 04/12/21 04/12/21 04/13/21 15:00 23:00 07:00 Intake Total 1000 ml 350 ml 0 ml Output Total 1200 ml Balance 1000 ml 350 ml -1200 ml Physical Exam General: Alert, Oriented X3, Cooperative, No acute distress Heart: Regular rate Lungs: Clear Abdomen: Soft, No tenderness, Other (obese) Extremities: No edema, Normal pulses Skin: No significant lesion Labs Labs: Laboratory Tests Test 04/12/21 16:48 04/13/21 00:00 04/13/21 06:20 04/13/21 07:42 Glucose (Fingerstick) 177 mg/dL (70-99) 248 mg/dL (70-99) 317 mg/dL (70-99) Sodium Level 133 mmol/L (136-145) Potassium Level 3.4 mmol/L (3.5-5.1) Chloride Level 101 mmol/L (98-107) Carbon Dioxide Level 20 mmol/L (21-32) Anion Gap 12 (6-14) Blood Urea Nitrogen 52 mg/dL (7-20) Creatinine 2.1 mg/dL (0.6-1.0) Estimated GFR (Cockcroft-Gault) 23.7 Glucose Level 314 mg/dL (70-99) Calcium Level 8.8 mg/dL (8.5-10.1) Test 04/13/21 11:37 Glucose (Fingerstick) 310 mg/dL (70-99) Assessment and Plan Assessmemt and Plan Problems Medical Problems: (1) Acute hyperglycemia Status: Acute Comment Review of Relevant I have reviewed the following items arnoldo (where applicable) has been applied. Medications: Current Medications Medications (Trade) Dose Ordered Sig/Ralph Route PRN Reason Start Time Stop Time Status Last Admin Dose Admin Insulin Glargine (Lantus Syringe) 10 unit QHS SQ 04/12/21 21:00 04/13/21 08:39 DC 04/12/21 21:33 Levothyroxine Sodium (Synthroid) 112 mcg DAILY06 PO 04/13/21 06:00 04/13/21 06:05 Trazodone HCl (Desyrel) 50 mg QHS PO 04/12/21 21:00 04/12/21 21:27 Insulin Human Lispro (HumaLOG) 10 units TIDWMEALS SQ 04/12/21 17:00 04/13/21 12:02 Aspirin (Ecotrin) 81 mg DAILYWBKFT PO 04/13/21 08:00 04/13/21 09:29 Insulin Glargine (Lantus Syringe) 10 unit BID SQ 04/13/21 09:00 04/13/21 10:02 Potassium Chloride (Klor-Con) 40 meq 1X ONCE PO 04/13/21 09:30 04/13/21 09:31 DC 04/13/21 09:53 Amlodipine Besylate (Norvasc) 10 mg 1X ONCE PO 04/13/21 11:15 04/13/21 11:16 DC 04/13/21 11:56 Justifications for Admission Other Justification HUMZA MARIE MD Apr 13, 2021 15:55
[2021-04-13 19:55] VITALS: BP_SYST 181; BP_SYST 91; BP_DIAS 108; BP_DIAS 60
[2021-04-13] MEDS: ATORVASTATIN CALCIUM 40 MG TABLET. PO SCH (20:29)
[2021-04-13] MEDS: traZODone 50 MG TABLET. PO SCH (20:29)
[2021-04-13 23:49] VITALS: BP 135/82
[2021-04-14 03:53] LABS: CALCIUM 8.6 mg/dL (8.5-10.1); CREATININE 2.3 mg/dL (0.6-1.0); GFR 21.3; POTASSIUM 4.1 mmol/L (3.5-5.1)
[2021-04-14 03:55] VITALS: BP 139/78
[2021-04-14] MEDS: LEVOTHYROXINE 112 MCG TABLET PO SCH (05:47)
[2021-04-14] MEDS: HEPARIN for SUB-Q USE 5,000 UNIT/ML VIAL. SQ SCH ×3 (05:47→21:21)
[2021-04-14 07:54] VITALS: BP 117/78
[2021-04-14] MEDS: ASPIRIN ENTERIC COATED 81 MG TABLET.DR. PO SCH (08:52)
[2021-04-14] MEDS: OLANZapine 5 MG TABLET PO SCH (08:52)
[2021-04-14] MEDS: CALCITRIOL 0.25 MCG CAPSULE. PO SCH (08:53)
[2021-04-14] MEDS: busPIRone 10 MG TABLET. PO SCH ×2 (08:53→20:52)
[2021-04-14] MEDS: SERTRALINE 50 MG TABLET. PO SCH (08:53)
[2021-04-14] MEDS: INSULIN LISPRO 300 UNITS/3 ML VIAL. SQ SCH ×6 (08:58→16:35)
[2021-04-14] MEDS: INSULIN GLARGINE SYRINGE. SQ SCH ×2 (08:59→21:21)
[2021-04-14] MEDS: IV NORMAL SALINE 1000ML BAG 1,000 ML IV SCH (10:41)
[2021-04-14 10:45] VITALS: BP 127/85
--- NOTE | 2021-04-14 11:13 | PDOC ---
[facility] PROGRESS NOTE Date of Service DOS: DATE: 04/14/21 TIME: 11:12 Chief Complaint Chief Complaint Hyperglycemia secondary to uncontrolled type 2 diabetes not on home insulin, hypertension tobacco abuse, DEMI unknown baseline, troponinemia, hypothyroid -Presenting with 3 to 4-day history nausea vomiting decreased p.o. intake -Presented emergency room found to have glucose 600. Received 8 units of insulin next glucose check around 415 -Every 4 hours glucose checks -Give 10 units of insulin now. Start Lantus. Sliding scale. Will likely need premeal as well. -Appreciate cardiology recommendationswe will DC metoprolol propranolol and Cardizem. Will start on amlodipine and high-dose statin. Patient okay for outpatient ischemic evaluation with Dr. Munroe on May 18 -Nephrology recommendations appreciatedwe will continue to trend creatinines and avoid NSAIDs -DVT prophylaxis -Home meds resumed as indicated History of Present Illness History of Present Illness 65-year-old female present in the emergency room today due to 2 weeks of nausea vomiting dry heaving and decreased p.o. intake. She checked her blood sugar this morning and it was in the 400s. She notes that in the past she lost quite a bit of weight and this had controlled her diabetes she states that over the course of time she has gained the weight back, but is not on any medication to control blood sugar at this time. She reports no diarrhea or other gastrointestinal symptoms today. She denies frequency of urine or any further urine changes. She admits to a history of hypertension. She is compliant with all of her other medications. The patient denies vomiting, fever, chills, chest pain, shortness of breath, abdominal pain, cough, recent trauma, or any other complaints. 04/13/2021 No acute events overnight. Patient symptoms have improved. Sugars have been in the 200s and 300s. I have increased her glargine to 10 units twice daily. Patient states that when she lost her weight she stopped taking her insulin. She will need to stay on insulin and possibly Metformin at time of discharge. Patient's chart, labs, images were reviewed and discussed with RN 04/14/2021 No acute events overnight. Patient feels much better. Sugars have still been in the 300s. I have increased her Lantus to 15 units twice daily. In addition to her 10 units premeals and sliding scale. Creatinine continues to be elevated at 3.9. Will defer to nephrology for further work-up or management. Anticipate discharge tomorrow if there is no further interventions. Patient's chart, labs, images were reviewed and discussed with RN Vitals/I&O Vitals/I&O: Vital Signs Date Time Temp Pulse Resp B/P (MAP) Pulse Ox O2 Delivery O2 Flow Rate FiO2 04/14/21 10:45 97.8 77 18 127/85 (99) 100 Room Air 97.8 04/13/21 19:55 I & O 04/13/21 04/13/21 04/14/21 15:00 23:00 07:00 Intake Total 560 ml 300 ml 500 ml Balance 560 ml 300 ml 500 ml Physical Exam General: Alert, Oriented X3, Cooperative, No acute distress Heart: Regular rate Lungs: Clear Abdomen: Soft, No tenderness, Other (obese) Extremities: No edema, Normal pulses Skin: No significant lesion Labs Labs: Laboratory Tests Test 04/13/21 11:37 04/13/21 17:00 04/13/21 20:29 04/13/21 23:46 Glucose (Fingerstick) 310 mg/dL (70-99) 117 mg/dL (70-99) 263 mg/dL (70-99) 268 mg/dL (70-99) Test 04/14/21 02:55 04/14/21 03:56 04/14/21 07:38 Sodium Level 136 mmol/L (136-145) Potassium Level 4.1 mmol/L (3.5-5.1) Chloride Level 105 mmol/L (98-107) Carbon Dioxide Level 21 mmol/L (21-32) Anion Gap 10 (6-14) Blood Urea Nitrogen 54 mg/dL (7-20) Creatinine 2.3 mg/dL (0.6-1.0) Estimated GFR (Cockcroft-Gault) 21.3 Glucose Level 260 mg/dL (70-99) Calcium Level 8.6 mg/dL (8.5-10.1) Glucose (Fingerstick) 230 mg/dL (70-99) 281 mg/dL (70-99) Assessment and Plan Assessmemt and Plan Problems Medical Problems: (1) Acute hyperglycemia Status: Acute Comment Review of Relevant I have reviewed the following items arnoldo (where applicable) has been applied. Medications: Current Medications Medications (Trade) Dose Ordered Sig/Ralph Route PRN Reason Start Time Stop Time Status Last Admin Dose Admin Amlodipine Besylate (Norvasc) 10 mg 1X ONCE PO 04/13/21 11:15 04/13/21 11:16 DC 04/13/21 11:56 Amlodipine Besylate (Norvasc) 10 mg DAILY PO 04/14/21 09:00 04/14/21 08:53 Atorvastatin Calcium (Lipitor) 80 mg QHS PO 04/13/21 21:00 04/13/21 20:29 Insulin Glargine (Lantus Syringe) 15 unit BID SQ 04/14/21 09:00 04/14/21 08:59 Justifications for Admission Other Justification HUMZA MARIE MD Apr 14, 2021 11:13
--- NOTE | 2021-04-14 12:28 | PDOC ---
PROGRESS NOTES Date of Service: DATE: 04/14/21 TIME: 12:28 Subjective Subjective Patient denied any chest pain or shortness of breath Objective Objective Vital Signs Date Time Temp Pulse Resp B/P (MAP) Pulse Ox O2 Delivery O2 Flow Rate FiO2 04/14/21 10:45 97.8 77 18 127/85 (99) 100 Room Air 97.8 04/13/21 19:55 Intake and Output 04/14/21 07:00 Intake Total 1360 ml Balance 1360 ml Intake Oral 1360 ml # Voids 3 Physical Exam Abdomen: Soft, No tenderness, Other (obese) Heart: Regular rate Extremities: No edema, Normal pulses General: Alert, Oriented X3, Cooperative, No acute distress HEENT: Atraumatic Lungs: Clear to auscultation MUSCULOSKELETAL: No joint tenderness, Osteoarthritic changes both hands Neuro: Normal speech, Sensation intact Psych/Mental Status: Mental status NL, Mood NL Skin: No significant lesion Assessment Assessment 1. Uncontrolled DM2 2 . DEMI 3. Hyponatremia 4. Mild troponin elevation; peak 297. type II, demand ischemia. CP free. EF and WM nml 5. Accelerated hypertension: now controlled 6. Hyperlipidemia 7. Sinus bradycardia; lowest 36 with associated use of propranolol and cardizem 8. H/o migraine; on propranolol Recommendations Continue current medical regimen Avoid AV sudha blocking agents We will consider ischemic evaluation and event monitor as an outpatient Plan Plan of Care Problems Medical Problems: (1) Acute hyperglycemia Status: Acute Comment Review of Relevant I have reviewed the following items arnoldo (where applicable) has been applied. Labs Laboratory Tests Test 04/13/21 17:00 04/13/21 20:29 04/13/21 23:46 04/14/21 02:55 Glucose (Fingerstick) 117 mg/dL (70-99) 263 mg/dL (70-99) 268 mg/dL (70-99) Sodium Level 136 mmol/L (136-145) Potassium Level 4.1 mmol/L (3.5-5.1) Chloride Level 105 mmol/L (98-107) Carbon Dioxide Level 21 mmol/L (21-32) Anion Gap 10 (6-14) Blood Urea Nitrogen 54 mg/dL (7-20) Creatinine 2.3 mg/dL (0.6-1.0) Estimated GFR (Cockcroft-Gault) 21.3 Glucose Level 260 mg/dL (70-99) Calcium Level 8.6 mg/dL (8.5-10.1) Test 04/14/21 03:56 04/14/21 07:38 04/14/21 11:23 Glucose (Fingerstick) 230 mg/dL (70-99) 281 mg/dL (70-99) 198 mg/dL (70-99) Medications Current Medications Amlodipine Besylate (Norvasc) 10 mg DAILY PO Last administered on 04/14/21at 08:53; Start 04/14/21 at 09:00 Atorvastatin Calcium (Lipitor) 80 mg QHS PO Last administered on 04/13/21at 20:29; Start 04/13/21 at 21:00 Insulin Glargine (Lantus Syringe) 15 unit BID SQ Last administered on 04/14/21at 08:59; Start 04/14/21 at 09:00 Vitals/I & O Vital Sign - Last 24 Hours 04/13/21 04/13/21 04/13/21 04/13/21 15:00 19:55 20:00 23:49 Temp 97.3 97.8 97.7 97.3 97.8 97.7 Pulse 67 75 65 Resp 18 21 20 B/P (MAP) 133/68 (89) 91/60 (70) 135/82 (99) Pulse Ox 97 93 94 O2 Delivery Room Air Room Air Room Air Room Air O2 Flow Rate 04/14/21 04/14/21 04/14/21 04/14/21 03:55 07:48 07:54 08:53 Temp 97.7 98.3 97.7 98.3 Pulse 67 75 75 Resp 20 19 B/P (MAP) 139/78 (98) 117/78 (91) 117/78 Pulse Ox 95 98 O2 Delivery Room Air Room Air Room Air 04/14/21 10:45 Temp 97.8 97.8 Pulse 77 Resp 18 B/P (MAP) 127/85 (99) Pulse Ox 100 O2 Delivery Room Air Intake and Output 04/13/21 04/13/21 04/14/21 15:00 23:00 07:00 Intake Total 560 ml 300 ml 500 ml Balance 560 ml 300 ml 500 ml PITER STANLEY MD Apr 14, 2021 12:28
--- NOTE | 2021-04-14 14:35 | PDOC ---
DATE OF SERVICE DATE: 04/14/21 TIME: 14:34 SUBJECTIVE ROS No complaints, states feeling better. No N/V. No SOB, reports good UOP OBJECTIVE Vital Signs Vital Signs Date Time Temp Pulse Resp B/P (MAP) Pulse Ox O2 Delivery O2 Flow Rate FiO2 04/14/21 10:45 97.8 77 18 127/85 (99) 100 Room Air 97.8 04/13/21 19:55 I & 0 Intake and Output 04/14/21 07:00 Intake Total 1360 ml Balance 1360 ml Intake Oral 1360 ml # Voids 3 PHYSICAL EXAM Physical Exam GEN: No apparent distress HEENT: Normal cephalic, OM dry, anicteric NECK: Supple LUNGS: Clear to auscultation , non labored HEART: RRR, S1, S2 present. ABDOMEN: Soft, nontender. Positive bowel sound EXTREMITIES: Without clubbing, cyanosis, or edema. NEUROLOGIC: Normal speech and tone. A&O x 3, moves all extremities, no obvious focal deficits PSYCHIATRIC: Normal affect, normal mood. Stable SKIN: No ulcerations or rashes, good skin turgor, no jaundice No Lay, No CVA or SP tenderness DIAGNOSIS/ASSESSMENT Assessment & Plan DEMI on CKD - Etiology Vasomotor- Vomiting/HyperGlycemia . stable renal function .Normal Bicarb. Supportive care, maintain Hydration, Avoid Nephrotoxins. Follow up with us as OP(Non urgent) CKD 3 B baseline Cr 1,6-1.8 in 2014, No interval labs available .Uses NSAId's HypoNatremia- Normal Na after correcting for HyperGlycemia HypoKlaemia- Replace as indicated Hyperglycemia secondary to uncontrolled type 2 diabetes - primary managing DM UNcontrolled, not taking any meds at Home HTN antihypertensives COMMENT/RELEVANT DATA Meds Current Medications Medications (Trade) Dose Ordered Sig/Ralph Start Time Stop Time Status Last Admin Dose Admin Acetaminophen (Tylenol) 650 mg PRN Q6HRS PRN 04/12/21 09:00 Amlodipine Besylate (Norvasc) 10 mg DAILY 04/14/21 09:00 04/14/21 08:53 10 MG Aspirin (Ecotrin) 81 mg DAILYWBKFT 04/13/21 08:00 04/14/21 08:52 81 MG Atorvastatin Calcium (Lipitor) 80 mg QHS 04/13/21 21:00 04/13/21 20:29 80 MG Buspirone HCl (Buspar) 10 mg BID 04/12/21 12:00 04/14/21 08:53 10 MG Calcitriol (Rocaltrol) 0.25 mcg DAILY 04/12/21 12:00 04/14/21 08:53 0.25 MCG Calcium Carbonate/ Glycine (Tums) 500 mg PRN Q3HRS PRN 04/12/21 09:00 Dextrose (Dextrose 50%-Water Syringe) 12.5 gm PRN Q15MIN PRN 04/12/21 09:00 Diltiazem HCl (Cardizem 24hr Cd) 120 mg BID 04/12/21 12:00 04/13/21 11:08 DC Heparin Sodium (Porcine) (Heparin Sodium) 5,000 unit Q8HRS 04/12/21 09:00 04/14/21 13:54 5,000 UNIT Info (Non-Icu Electrolyte Protocol) 1 ea PRN DAILY PRN 04/12/21 09:00 Insulin Glargine (Lantus Syringe) 15 unit BID 04/14/21 09:00 04/14/21 08:59 15 UNIT Insulin Human Lispro (HumaLOG) 10 units TIDWMEALS 04/12/21 17:00 04/14/21 11:50 10 UNITS Insulin Human Regular (HumuLIN R VIAL) 8 unit 1X ONCE 04/12/21 07:00 04/12/21 07:01 DC 04/12/21 07:06 8 UNIT Levothyroxine Sodium (Synthroid) 112 mcg DAILY06 04/13/21 06:00 04/14/21 05:47 112 MCG Metoprolol Tartrate (Lopressor) 12.5 mg BID 04/12/21 09:00 04/13/21 11:08 DC Olanzapine (ZyPREXA) 5 mg DAILY 04/12/21 12:00 04/14/21 08:52 5 MG Ondansetron HCl (Zofran) 4 mg PRN Q6HRS PRN 04/12/21 09:00 Potassium Chloride (Klor-Con) 40 meq 1X ONCE 04/13/21 09:30 04/13/21 09:31 DC 04/13/21 09:53 40 MEQ Propranolol HCl (Inderal La) 80 mg DAILY 04/12/21 12:00 04/13/21 11:08 DC Sertraline HCl (Zoloft) 50 mg DAILY 04/12/21 09:00 04/14/21 08:53 50 MG Sodium Chloride 1,000 ml @ 50 mls/hr Q20H 04/12/21 12:45 04/14/21 10:41 50 MLS/HR Trazodone HCl (Desyrel) 50 mg QHS 04/12/21 21:00 04/13/21 20:29 50 MG Zolpidem Tartrate (Ambien) 5 mg PRN QHS PRN 04/12/21 09:00 Lab Laboratory Tests Test 04/13/21 17:00 04/13/21 20:29 04/13/21 23:46 04/14/21 02:55 Glucose (Fingerstick) 117 mg/dL (70-99) 263 mg/dL (70-99) 268 mg/dL (70-99) Sodium Level 136 mmol/L (136-145) Potassium Level 4.1 mmol/L (3.5-5.1) Chloride Level 105 mmol/L (98-107) Carbon Dioxide Level 21 mmol/L (21-32) Anion Gap 10 (6-14) Blood Urea Nitrogen 54 mg/dL (7-20) Creatinine 2.3 mg/dL (0.6-1.0) Estimated GFR (Cockcroft-Gault) 21.3 Glucose Level 260 mg/dL (70-99) Calcium Level 8.6 mg/dL (8.5-10.1) Test 04/14/21 03:56 04/14/21 07:38 04/14/21 11:23 Glucose (Fingerstick) 230 mg/dL (70-99) 281 mg/dL (70-99) 198 mg/dL (70-99) Results All relevant outside records, renal labs, imaging studies, telemetry/EKG's were reviewed. Justicifation of Admission Dx: Justifications for Admission: Justification of Admission Dx: N/A MAYELIN HOWE MD Apr 14, 2021 14:35
[2021-04-14 15:00] VITALS: BP 113/69
[2021-04-14 19:47] VITALS: BP 146/80
[2021-04-14] MEDS: traZODone 50 MG TABLET. PO SCH (20:52)
[2021-04-14] MEDS: ATORVASTATIN CALCIUM 40 MG TABLET. PO SCH (20:52)
[2021-04-14 22:35] VITALS: BP 110/59
[2021-04-15] MEDS: IV NORMAL SALINE 1000ML BAG 1,000 ML IV SCH (02:32)
[2021-04-15 02:46] VITALS: BP 163/86
[2021-04-15 04:50] LABS: CALCIUM 8.5 mg/dL (8.5-10.1); GFR 25.1
[2021-04-15] MEDS: LEVOTHYROXINE 112 MCG TABLET PO SCH (05:43)
[2021-04-15] MEDS: HEPARIN for SUB-Q USE 5,000 UNIT/ML VIAL. SQ SCH (05:46)
[2021-04-15 07:00] VITALS: BP 155/84
[2021-04-15] MEDS: CALCITRIOL 0.25 MCG CAPSULE. PO SCH (08:43)
[2021-04-15] MEDS: busPIRone 10 MG TABLET. PO SCH (08:43)
[2021-04-15] MEDS: OLANZapine 5 MG TABLET PO SCH (08:43)
[2021-04-15] MEDS: ASPIRIN ENTERIC COATED 81 MG TABLET.DR. PO SCH (08:44)
[2021-04-15] MEDS: SERTRALINE 50 MG TABLET. PO SCH (08:44)
[2021-04-15] MEDS: INSULIN LISPRO 300 UNITS/3 ML VIAL. SQ SCH ×4 (08:50→12:54)
[2021-04-15] MEDS ORDERED: AMLO-187 PO (08:53)
[2021-04-15] MEDS ORDERED: INSU100V8 SQ (08:53)
[2021-04-15] MEDS ORDERED: ATOR40TA59 PO (08:53)
[2021-04-15] MEDS ORDERED: INSU100V35 SQ (08:53)
--- NOTE | 2021-04-15 08:54 | SNU/HH DC ---
DISCHARGE ORDERS DISCHARGE INFORMATION: DISCHARGE DATE: Apr 15, 2021 FINAL DIAGNOSIS Problems Medical Problems: (1) Acute hyperglycemia Status: Acute CONDITION ON DISCHARGE: Stable CODE STATUS: Code Status: Full POST DISCHARGE ORDERS: ACTIVITY ORDERS: Activity as tolerated WEIGHT BEARING STATUS: No restrictions CHECKS AFTER DISCHARGE: CHECKS AFTER DISCHARGE: Check blood press - daily FOLLOW-UP: PHYSICIAN FOLLOW-UP: PCP within 2 weeks of discharge ADDITIONAL FOLLOW-UP: Cardiology and nephrology [facility] LAB ORDERS FOR FOLLOW-UP: Repeat chemistries and creatinine level TREATMENT/EQUIPMENT ORDERS: ADAPTIVE EQUIPMENT NEEDED: None DISCHARGE MEDICATIONS: Home Meds Active Scripts Insulin Lispro (Admelog) 100 Unit/1 Ml Vial, 10 UNITS SQ TIDWMEALS for DM for 30 Days, #10 EACH Prov:HUMZA MARIE MD 04/15/21 Insulin Glargine,Hum.rec.anlog (LANTUS) 100 Unit/1 Ml Vial, 15 UNIT SQ BID for DM for 30 Days, #10 EACH 2 Refills Prov:HUMZA MARIE MD 04/15/21 Amlodipine Besylate (AMLODIPINE BESYLATE) 10 Mg Tablet, 10 MG PO DAILY for blood pressure for 30 Days, #30 TAB 2 Refills Prov:HUMZA MARIE MD 04/15/21 Atorvastatin Calcium (ATORVASTATIN CALCIUM) 40 Mg Tablet, 80 MG PO QHS for ch olesterol for 30 Days, #60 TAB 2 Refills Prov:HUMZA MARIE MD 04/15/21 Reported Medications Olanzapine (OLANZAPINE) 5 Mg Tablet, 5 MG PO DAILY for mood, TAB 04/12/21 Trazodone Hcl (TRAZODONE HCL) 50 Mg Tablet, 1 TAB PO QHS for sleep, #30 TAB 1 Refill 04/12/21 Buspirone Hcl (BUSPIRONE HCL) 10 Mg Tablet, 1 TAB PO BID for antidepressant, #60 TAB 1 Refill 04/12/21 Calcitriol (CALCITRIOL) 0.25 Mcg Capsule, 1 CAP PO DAILY for low levels, #30 CAP 5 Refills 04/12/21 Levothyroxine Sodium (LEVOTHYROXINE SODIUM) 112 Mcg Tablet, 1 TAB PO DAILY for hypothyroid, #30 TAB 5 Refills 04/12/21 Alendronate Sodium (ALENDRONATE SODIUM) 70 Mg Tablet, 1 TAB PO WEEKLY, #4 TAB 3 Refills 02/09/15 Sertraline Hcl (ZOLOFT) 50 Mg Tablet, 1 TAB PO DAILY, #30 TAB 2 Refills 02/09/15 Discontinued Reported Medications Propranolol Hcl (PROPRANOLOL HCL) 80 Mg Cap.sa.24h, 1 CAP PO DAILY for tachy, #90 CAP 1 Refill 04/12/21 Lisinopril/Hydrochlorothiazide (LISINOPRIL-HCTZ 20-12.5 MG TAB) 1 Each Tablet, 1 TAB PO DAILY for HTN, #30 TAB 5 Refills 04/12/21 Diltiazem Hcl (TAZTIA XT) 120 Mg Capsule.er, 1 CAP PO BID for rate control for 30 Days, #60 CAP 0 Refills 04/12/21 Methadone Hcl (METHADONE HCL) 10 Mg Tablet, 10 MG PO BID, TAB 02/09/15 Metoprolol Tartrate (METOPROLOL TARTRATE) 25 Mg Tablet, 0.5 TAB PO BID, #180 TAB 1 Refill 02/09/15 HUMZA MARIE MD Apr 15, 2021 08:54
[2021-04-15] MEDS: INSULIN GLARGINE SYRINGE. SQ SCH (09:05)
--- NOTE | 2021-04-15 09:35 | PDOC ---
PROGRESS NOTES Date of Service: DATE: 04/15/21 TIME: 09:35 Subjective Subjective No new complaints Objective Objective Vital Signs Date Time Temp Pulse Resp B/P (MAP) Pulse Ox O2 Delivery O2 Flow Rate FiO2 04/15/21 08:44 75 04/15/21 07:00 98.5 18 155/84 (107) 100 Room Air 98.5 Intake and Output 04/15/21 06:59 Intake Total 2940 ml Balance 2940 ml Intake Oral 2340 ml IV Total 600 ml # Voids 4 Physical Exam Abdomen: Soft, No tenderness, Other (obese) Heart: Regular rate Extremities: No edema, Normal pulses General: Alert, Oriented X3, Cooperative, No acute distress HEENT: Atraumatic Lungs: Clear to auscultation MUSCULOSKELETAL: No joint tenderness, Osteoarthritic changes both hands Neuro: Normal speech, Sensation intact Psych/Mental Status: Mental status NL, Mood NL Skin: No significant lesion Assessment Assessment 1. Uncontrolled DM2 2 . DEMI 3. Hyponatremia 4. Mild troponin elevation; peak 297. type II, demand ischemia. CP free. EF and WM nml 5. Accelerated hypertension: now controlled 6. Hyperlipidemia 7. Sinus bradycardia; lowest 36 with associated use of propranolol and cardizem 8. H/o migraine; on propranolol Recommendations Continue current medical regimen Avoid AV sudha blocking agents We will consider ischemic evaluation and event monitor as an outpatient Plan Plan of Care Problems Medical Problems: (1) Acute hyperglycemia Status: Acute Comment Review of Relevant I have reviewed the following items arnoldo (where applicable) has been applied. Labs Laboratory Tests Test 04/14/21 11:23 04/14/21 16:26 04/14/21 20:04 04/14/21 23:58 Glucose (Fingerstick) 198 mg/dL (70-99) 208 mg/dL (70-99) 213 mg/dL (70-99) 178 mg/dL (70-99) Test 04/15/21 03:45 04/15/21 04:12 04/15/21 07:33 Sodium Level 136 mmol/L (136-145) Potassium Level 4.0 mmol/L (3.5-5.1) Chloride Level 106 mmol/L (98-107) Carbon Dioxide Level 21 mmol/L (21-32) Anion Gap 9 (6-14) Blood Urea Nitrogen 42 mg/dL (7-20) Creatinine 2.0 mg/dL (0.6-1.0) Estimated GFR (Cockcroft-Gault) 25.1 Glucose Level 203 mg/dL (70-99) Calcium Level 8.5 mg/dL (8.5-10.1) Glucose (Fingerstick) 189 mg/dL (70-99) 253 mg/dL (70-99) Vitals/I & O Vital Sign - Last 24 Hours 04/14/21 04/14/21 04/14/21 04/14/21 10:45 15:00 19:47 20:00 Temp 97.8 98.1 97.6 97.8 98.1 97.6 Pulse 77 72 72 Resp 18 18 16 B/P (MAP) 127/85 (99) 113/69 (84) 146/80 (102) Pulse Ox 100 97 96 O2 Delivery Room Air Room Air Room Air Room Air 04/14/21 04/15/21 04/15/21 04/15/21 22:35 02:46 07:00 08:44 Temp 97.8 98.4 98.5 97.8 98.4 98.5 Pulse 72 78 76 75 Resp 16 18 18 B/P (MAP) 110/59 (76) 163/86 (111) 155/84 (107) Pulse Ox 98 98 100 O2 Delivery Room Air Room Air Room Air Intake and Output 04/14/21 04/14/21 04/15/21 14:59 22:59 06:59 Intake Total 1240 ml 1700 ml 0 ml Balance 1240 ml 1700 ml 0 ml PITER STANLEY MD Apr 15, 2021 09:35
[2021-04-15 10:55] VITALS: BP 136/88
--- NOTE | 2021-04-15 12:47 | PDOC ---
DATE OF SERVICE DATE: 04/15/21 TIME: 12:46 SUBJECTIVE ROS No complaints, No N/V. No SOB, reports good UOP OBJECTIVE Vital Signs Vital Signs Date Time Temp Pulse Resp B/P (MAP) Pulse Ox O2 Delivery O2 Flow Rate FiO2 04/15/21 10:55 98.2 83 18 136/88 (104) 100 Room Air 98.2 I & 0 Intake and Output 04/15/21 07:00 Intake Total 2940 ml Balance 2940 ml Intake Oral 2340 ml IV Total 600 ml # Voids 4 PHYSICAL EXAM Physical Exam GEN: No apparent distress HEENT: Normal cephalic, OM dry, anicteric NECK: Supple LUNGS: Clear to auscultation , non labored HEART: RRR, S1, S2 present. ABDOMEN: Soft, nontender. Positive bowel sound EXTREMITIES: Without clubbing, cyanosis, or edema. NEUROLOGIC: Normal speech and tone. A&O x 3, moves all extremities, no obvious focal deficits PSYCHIATRIC: Normal affect, normal mood. Stable SKIN: No ulcerations or rashes, good skin turgor, no jaundice No Lay, No CVA or SP tenderness DIAGNOSIS/ASSESSMENT DIAGNOSIS/ASSESSMENT Assessment & Plan DEMI on CKD - Etiology Vasomotor- Vomiting/HyperGlycemia . stable renal function .Normal Bicarb. Supportive care, maintain Hydration, Avoid Nephrotoxins. Follow up with us as OP(Non urgent) CKD 3 B baseline Cr 1,6-1.8 in 2014, No interval labs available .Uses NSAId's HypoNatremia- Normal Na after correcting for HyperGlycemia HypoKlaemia- Replace as indicated Hyperglycemia secondary to uncontrolled type 2 diabetes - primary managing DM UNcontrolled, not taking any meds at Home HTN antihypertensives COMMENT/RELEVANT DATA Meds Current Medications Medications (Trade) Dose Ordered Sig/Ralph Start Time Stop Time Status Last Admin Dose Admin Acetaminophen (Tylenol) 650 mg PRN Q6HRS PRN 04/12/21 09:00 Amlodipine Besylate (Norvasc) 10 mg DAILY 04/14/21 09:00 04/15/21 08:44 10 MG Aspirin (Ecotrin) 81 mg [id number] 04/13/21 08:00 04/15/21 08:44 81 MG Atorvastatin Calcium (Lipitor) 80 mg QHS 04/13/21 21:00 04/14/21 20:52 80 MG Buspirone HCl (Buspar) 10 mg BID 04/12/21 12:00 04/15/21 08:43 10 MG Calcitriol (Rocaltrol) 0.25 mcg DAILY 04/12/21 12:00 04/15/21 08:43 0.25 MCG Calcium Carbonate/ Glycine (Tums) 500 mg PRN Q3HRS PRN 04/12/21 09:00 Dextrose (Dextrose 50%-Water Syringe) 12.5 gm PRN Q15MIN PRN 04/12/21 09:00 Diltiazem HCl (Cardizem 24hr Cd) 120 mg BID 04/12/21 12:00 04/13/21 11:08 DC Heparin Sodium (Porcine) (Heparin Sodium) 5,000 unit Q8HRS 04/12/21 09:00 04/15/21 05:46 5,000 UNIT Info (Non-Icu Electrolyte Protocol) 1 ea PRN DAILY PRN 04/12/21 09:00 Insulin Glargine (Lantus Syringe) 15 unit BID 04/14/21 09:00 04/15/21 09:05 15 UNIT Insulin Human Lispro (HumaLOG) 10 units TIDWMEALS 04/12/21 17:00 04/15/21 08:52 10 UNITS Insulin Human Regular (HumuLIN R VIAL) 8 unit 1X ONCE 04/12/21 07:00 04/12/21 07:01 DC 04/12/21 07:06 8 UNIT Levothyroxine Sodium (Synthroid) 112 mcg DAILY06 04/13/21 06:00 04/15/21 05:43 112 MCG Metoprolol Tartrate (Lopressor) 12.5 mg BID 04/12/21 09:00 04/13/21 11:08 DC Olanzapine (ZyPREXA) 5 mg DAILY 04/12/21 12:00 04/15/21 08:43 5 MG Ondansetron HCl (Zofran) 4 mg PRN Q6HRS PRN 04/12/21 09:00 Potassium Chloride (Klor-Con) 40 meq 1X ONCE 04/13/21 09:30 04/13/21 09:31 DC 04/13/21 09:53 40 MEQ Propranolol HCl (Inderal La) 80 mg DAILY 04/12/21 12:00 04/13/21 11:08 DC Sertraline HCl (Zoloft) 50 mg DAILY 04/12/21 09:00 04/15/21 08:44 50 MG Sodium Chloride 1,000 ml @ 50 mls/hr Q20H 04/12/21 12:45 04/15/21 02:32 50 MLS/HR Trazodone HCl (Desyrel) 50 mg QHS 04/12/21 21:00 04/14/21 20:52 50 MG Zolpidem Tartrate (Ambien) 5 mg PRN QHS PRN 04/12/21 09:00 Lab Laboratory Tests Test 04/14/21 16:26 04/14/21 20:04 04/14/21 23:58 04/15/21 03:45 Glucose (Fingerstick) 208 mg/dL (70-99) 213 mg/dL (70-99) 178 mg/dL (70-99) Sodium Level 136 mmol/L (136-145) Potassium Level 4.0 mmol/L (3.5-5.1) Chloride Level 106 mmol/L (98-107) Carbon Dioxide Level 21 mmol/L (21-32) Anion Gap 9 (6-14) Blood Urea Nitrogen 42 mg/dL (7-20) Creatinine 2.0 mg/dL (0.6-1.0) Estimated GFR (Cockcroft-Gault) 25.1 Glucose Level 203 mg/dL (70-99) Calcium Level 8.5 mg/dL (8.5-10.1) Test 04/15/21 04:12 04/15/21 07:33 04/15/21 11:28 Glucose (Fingerstick) 189 mg/dL (70-99) 253 mg/dL (70-99) 157 mg/dL (70-99) Results All relevant outside records, renal labs, imaging studies, telemetry/EKG's were reviewed. Justicifation of Admission Dx: Justifications for Admission: Justification of Admission Dx: N/A MAYELIN HOWE MD Apr 15, 2021 12:47
--- NOTE | 2021-04-15 13:40 | NUR ---
Discharge: Extensive discharge teaching. Reviewed medications, diabetes, insulin, insulin administration, hypertension, bradycardia, ect. Teaching verbal and written. Patient and verbalized understanding. Patient reported she used to take insulin in the past and her is also a diabetic on insulin so they felt comfortable with the new medications, checking glucose at home, ect. Patient to keep diary to take to next appointment with PCP of blood pressure, heart rate and glucose level with insulin dose given. All belongings with patient. Prescriptions sent to [facility] by physician. Dr. Ledezma to call in prescription for glucometer, strips and needles. Patient assisted off of unit via wheelchair accompanied by and LEILANI Oquendo
--- NOTE | 2021-04-20 16:44 | PDOC3 ---
[facility]-Discharge Summary Date of Admission: Date of Admission: Apr 12, 2021 Date of Discharge: Date of Discharge: Apr 15, 2021 Discharge Diagnosis: Discharge Diagnosis: Hyperglycemia secondary to uncontrolled type 2 diabetes not on home insulin, hypertension tobacco abuse, DEMI unknown baseline, troponinemia, hypothyroid Hospital Course: Hospital Course: 65-year-old female present in the emergency room today due to 2 weeks of nausea vomiting dry heaving and decreased p.o. intake. She checked her blood sugar this morning and it was in the 400s. She notes that in the past she lost quite a bit of weight and this had controlled her diabetes she states that over the course of time she has gained the weight back, but is not on any medication to control blood sugar at this time. She reports no diarrhea or other gastrointestinal symptoms today. She denies frequency of urine or any further urine changes. She admits to a history of hypertension. She is compliant with all of her other medications. The patient denies vomiting, fever, chills, chest pain, shortness of breath, abdominal pain, cough, recent trauma, or any other complaints. 04/13/2021 No acute events overnight. Patient symptoms have improved. Sugars have been in the 200s and 300s. I have increased her glargine to 10 units twice daily. Patient states that when she lost her weight she stopped taking her insulin. She will need to stay on insulin and possibly Metformin at time of discharge. Patient's chart, labs, images were reviewed and discussed with RN 04/14/2021 No acute events overnight. Patient feels much better. Sugars have still been in the 300s. I have increased her Lantus to 15 units twice daily. In addition to her 10 units premeals and sliding scale. Creatinine continues to be elevated at 3.9. Will defer to nephrology for further work-up or management. Anticipate discharge tomorrow if there is no further interventions. Patient's chart, labs, images were reviewed and discussed with RN By day of discharge, pt was clinically stable and ready for discharge. Sugars are moderately controlled and she will need to resume her insulin regimen. Please see med rec at time of discharge. Rest of hospital course was uneventful Disposition: Disposition/Orders: D/C to Home Activity: Activity: Resume previous activity Diet: Diet: Consistent Carbohydrate Medications: Home Meds Active Scripts Insulin Lispro (Admelog) 100 Unit/1 Ml Vial, 10 UNITS SQ TIDWMEALS for DM for 30 Days, #10 EACH Prov:HUMZA MARIE MD 04/15/21 Insulin Glargine,Hum.rec.anlog (LANTUS) 100 Unit/1 Ml Vial, 15 UNIT SQ BID for DM for 30 Days, #10 EACH 2 Refills Prov:HUMZA MARIE MD 04/15/21 Amlodipine Besylate (AMLODIPINE BESYLATE) 10 Mg Tablet, 10 MG PO DAILY for blood pressure for 30 Days, #30 TAB 2 Refills Prov:HUMZA MARIE MD 04/15/21 Atorvastatin Calcium (ATORVASTATIN CALCIUM) 40 Mg Tablet, 80 MG PO QHS for cholesterol for 30 Days, #60 TAB 2 Refills Prov:HUMZA MARIE MD 04/15/21 Reported Medications Olanzapine (OLANZAPINE) 5 Mg Tablet, 5 MG PO DAILY for mood, TAB 04/12/21 Trazodone Hcl (TRAZODONE HCL) 50 Mg Tablet, 1 TAB PO QHS for sleep, #30 TAB 1 Refill 04/12/21 Buspirone Hcl (BUSPIRONE HCL) 10 Mg Tablet, 1 TAB PO BID for antidepressant, #60 TAB 1 Refill 04/12/21 Calcitriol (CALCITRIOL) 0.25 Mcg Capsule, 1 CAP PO DAILY for low levels, #30 CAP 5 Refills 04/12/21 Levothyroxine Sodium (LEVOTHYROXINE SODIUM) 112 Mcg Tablet, 1 TAB PO DAILY for hypothyroid, #30 TAB 5 Refills 04/12/21 Alendronate Sodium (ALENDRONATE SODIUM) 70 Mg Tablet, 1 TAB PO WEEKLY, #4 TAB 3 Refills 02/09/15 Sertraline Hcl (ZOLOFT) 50 Mg Tablet, 1 TAB PO DAILY, #30 TAB 2 Refills 02/09/15 Discontinued Reported Medications Propranolol Hcl (PROPRANOLOL HCL) 80 Mg Cap.sa.24h, 1 CAP PO DAILY for tachy, #90 CAP 1 Refill 04/12/21 Lisinopril/Hydrochlorothiazide (LISINOPRIL-HCTZ 20-12.5 MG TAB) 1 Each Tablet, 1 TAB PO DAILY for HTN, #30 TAB 5 Refills 04/12/21 Diltiazem Hcl (TAZTIA XT) 120 Mg Capsule.er, 1 CAP PO BID for rate control for 30 Days, #60 CAP 0 Refills 04/12/21 Methadone Hcl (METHADONE HCL) 10 Mg Tablet, 10 MG PO BID, TAB 02/09/15 Scheduled Alendronate Sodium (Alendronate Sodium), 1 TAB PO WEEKLY, (Reported) Amlodipine Besylate (Amlodipine Besylate), 10 MG PO DAILY Atorvastatin Calcium (Atorvastatin Calcium), 80 MG PO QHS Buspirone Hcl (Buspirone Hcl), 1 TAB PO BID, (Reported) Calcitriol (Calcitriol), 1 CAP PO DAILY, (Reported) Insulin Glargine,Hum.rec.anlog (Lantus), 15 UNIT SQ BID Insulin Lispro (Admelog), 10 UNITS SQ TIDWMEALS Levothyroxine Sodium (Levothyroxine Sodium), 1 TAB PO DAILY, (Reported) Olanzapine (Olanzapine), 5 MG PO DAILY, (Reported) Sertraline Hcl (Zoloft), 1 TAB PO DAILY, (Reported) Trazodone Hcl (Trazodone Hcl), 1 TAB PO QHS, (Reported) Discontinued Medications Diltiazem Hcl (Taztia Xt), 1 CAP PO BID, (Reported) Lisinopril/Hydrochlorothiazide (Lisinopril-Hctz 20-12.5 Mg Tab), 1 TAB PO DAILY, (Reported) Methadone Hcl (Methadone Hcl), 10 MG PO BID, (Reported) Propranolol Hcl (Propranolol Hcl), 1 CAP PO DAILY, (Reported) Total Time: Total Time: Total time spent was 34 minutes in preparing scripts, discharge planning with SW and RN, and preparing this discharge summary. Justicifation of Admission Dx: Justifications for Admission: Justification of Admission Dx: N/A HUMZA MARIE MD Apr 20, 2021 16:44
== END 2021-04-15 13:35 | disposition home or self-care (01) | DRG 637 ==
LOC: ER 06:16 → 4 NORTH 08:50 → 6 SOUTH 09:55
PROVIDERS: ADMIT Student in an Organized Health Care Education/Training Program; ATTEND Student in an Organized Health Care Education/Training Program
DX: E11.01 Type 2 diabetes mellitus with hyperosmolarity with coma (principal); N17.0 Acute kidney failure with tubular necrosis; E87.1 Hypo-osmolality and hyponatremia; I24.8 Other forms of acute ischemic heart disease; I48.92 Unspecified atrial flutter; E78.5 Hyperlipidemia, unspecified; Z82.49 Family history of ischemic heart disease and other diseases of the circulatory system; Z83.3 Family history of diabetes mellitus; Z90.710 Acquired absence of both cervix and uterus; G43.909 Migraine, unspecified, not intractable, without status migrainosus; E03.9 Hypothyroidism, unspecified; F17.210 Nicotine dependence, cigarettes, uncomplicated; I12.9 Hypertensive chronic kidney disease with stage 1 through stage 4 chronic kidney disease, or unspecified chronic kidney disease; E11.22 Type 2 diabetes mellitus with diabetic chronic kidney disease; N18.32 Chronic kidney disease, stage 3b; Z79.4 Long term (current) use of insulin; F17.200 Nicotine dependence, unspecified, uncomplicated; Z20.822 Contact with and (suspected) exposure to COVID-19; E87.6 Hypokalemia
CPT/HCPCS: 36415; 71045; 80048; 80053; 80061; 81001; 82436; 82962; 83036; 83735; 83880; 84133; 84300; 84436; 84443; 84484; 85025; 87426; 93005; 93306; 96361; 96374; J1644; J1815; J7030; U0003; U0005; 99285-25; G0378